=== PATIENT | male | born 1955 | race Hispanic/Latino ===

== ENCOUNTER 2019-02-04 21:07 | Observation (INO) | payer MEDICAID ==
--- OUTSIDE RECORDS SUMMARY | 2019-02-04 21:10 | XMS REPORT | Clinical Summary ---
:1955 Author Organization [facility] Address [address] [place] [address] Care Team Providers Name Role Phone Unavailable Primary Care Provider Unavailable Allergies No Known Allergies Medications Medication Sig Dispensed Refills Start Date End Date Status metFORMIN Take 1,000 mg by 0 Active (GLUCOPHAGE) 1000 mouth 2 (two) times MG tablet daily with breakfast and dinner. aspirin 81 MG Take 1 tablet (81 mg 90 tablet 3 06/27/2017 chewable tablet total) by mouth 8 daily. atorvastatin Take 1 tablet (80 mg 90 tablet 3 06/27/2017 (LIPITOR) 80 MG total) by mouth 8 tablet daily. furosemide (LASIX) Take 1 tablet (20 mg 180 tablet 3 06/26/2017 20 MG tablet total) by mouth 2 8 (two) times daily. metoprolol Take 1 tablet (50 mg 90 tablet 3 06/27/2017 (TOPROL-XL) 50 MG total) by mouth 8 24 hr tablet daily. potassium chloride Take 1 tablet (20 90 tablet 3 06/27/2017 SA mEq total) by mouth 8 (K-DUR,KLOR-CON) daily. 20 MEQ tablet insulin detemir Inject 18 Units 32.4 mL 3 06/26/2017 (LEVEMIR) 100 subcutaneously 2 8 unit/mL injection (two) times daily. 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 Overview: On 06/11/17 Acute postoperative pain 06/13/2017 Encephalopathy 06/13/2017 Hypertensive urgency 06/13/2017 NSTEMI (non-ST elevated myocardial infarction) 06/09/2017 Type 2 diabetes mellitus with complication 06/09/2017 Other hyperlipidemia 06/09/2017 Immunizations Name Dates Previously Given Next Due Influenza Three-TIV PF 5+ YR 06/25/2017 Social History Tobacco Use Types Packs/Day Years Used Date Former Smoker Cigarettes 0.5 41 06/09/1976 - 05/26/2017 Smokeless Tobacco: Never Used Alcohol Use Drinks/Week oz/Week Comments No Sex Assigned at Date Recorded Not on file Job Start Date Occupation Industry Not on file Not on file Not on file Travel History Travel Start Travel End No recent travel history available. Last Filed Vital Signs Not on file Plan of Treatment Not on file Implants Implanted Type Area Body Wirer Device Shelf Model / Identifier Expiration Serial / Date Lot Sut Surg Stl 7 18g 18in Mls Mp M655g - Sn/A Force/Ar N/A: J &J:ETHICON 01/03/2022 [id number] / Implanted: Qty: 4 on 06/11/2017 by Daniela Atkins MD throscopy Sternum N/A / [id number] Sut Surg Stl 7 18g 18in Mls Mp M655g - Sn/A Force/Ar N/A: J &J:ETHICON 01/03/2022 [id number] / Implanted: Qty: 2 on 06/11/2017 by Daniela Atkins MD throscopy Sternum N/A / [id number] Procedures Procedure Name Priority Date/Time Associated Diagnosis Comments TRANSFUSE LEUKO-REDUCED STAT 09/12/2018 5:25 PM CARD PUNCHER RED BLOOD CELLS after 02/03/2018 Results Transfuse Leuko-Red RBC (09/12/2018 5:25 PM CARD PUNCHER)after 02/03/2018 Insurance Payer Benefit Plan / Group Subscriber ID Type Phone Address [place] xxxxxxxxx Advance Directives For more information, please contact:[facility] [employer] [phone] Code Status Date Activated Date Inactivated Comments Full Code 06/11/2017 4:43 PM 06/26/2017 10:49 PM This code status was determined by: Patient Full Code 06/09/2017 8:00 AM 06/11/2017 4:43 PM This code status was determined by: Patient
--- OUTSIDE RECORDS SUMMARY | 2019-02-04 21:10 | XMS REPORT | Summary of Care ---
:1955 Author Name Onelia Ram R.N. Address [place] [facility] Unavailable , Care Team Providers Name Role Phone ANGELIQUE Bustos, SOURAV Unavailable Unavailable Matt Mark M.D. Unavailable Unavailable Unavailable Unavailable Unavailable Functional Status Name Dates Details Functional status health issues are not documented Status: Name Dates Details Cognitive status health issues are not documented Status: Problems Name Dates Details Diabetes Mellitus Poorly Controlled (250.02) Status: Active Lumbar Spondylosis (L3 - L4) (721.3) Status: Active Drowsiness (780.09, R40.0) Status: Active Lower back pain (724.2, M54.5) Status: Active Chronic obstructive pulmonary disease (496, J44.9) Status: Active Abnormal glucose (790.29, R73.09) Status: Active Hyperlipidemia (272.4, E78.5) Status: Active Fatigue (780.79, R53.83) Status: Active Arthralgia of multiple sites (719.49, M25.50) Status: Active Lumbar spondylosis (721.3, M47.816) Status: Active S/P cholecystectomy (V45.79, Z90.49) Status: Active Medications Name Dates Details Combivent 18-103 MCG/ACT AERO INHALE 2 PUFFS FOUR TIMES DAILY DIRECTED. Quantity: 1 Refills: 5 Matt Mark M.D. Start : 29-Dec-2010 Active 14.7 GM Inhaler Hydrocodone-Acetaminophen 5-500 MG TABS TAKE 1-2 TABLETs TWICE DAILY NEEDED FOR PAIN Quantity: 60 Refills: 0 Matt Mark M.D. Start : 29-Dec-2010 Active Allergies and Adverse Reactions Name Dates Details No Known Drug Allergies (Allergy) Status: Active Procedures Procedure Dates Details Procedures not documented Immunization Name Dates Details Immunizations not documented Family History Name Dates Details No pertinent family history Status: Active Social History Name Dates Details - Status: Name Dates Details Never smoker Vital Signs Date Test Result Details [id number] BP Systolic 126 mm[Hg] Status: BP Diastolic 70 mm[Hg] Status: Height 69 in Status: Weight 202.5 lb Status: Body Mass Index Calculated 29.9 kg/m2 Status: Body Surface Area Calculated 2.08 m2 Status: Temperature 97.8 f Status: Heart Rate 76 /min Status: Results Date Description Value Details Results not documented Plan of Care Name Dates Details Planned Observations Planned Goals not documented Interventions Provided InstructionsPatient Specific Education Given; Done: 04 Oct 2017 Instructions Name Dates Details Instructions not documented Encounters Appointment; GENERAL, SERVICE On: 04-Oct-2017 14:15 Encounter Diagnosis: Problem not documented
--- OUTSIDE RECORDS SUMMARY | 2019-02-04 21:16 | XMS REPORT ---
:1955 [facility] [address] [place] [address] [address]. [address] [place] [address] Care Team Providers Name Role Phone PARAG WEEMS Unavailable Unavailable AYESHA PERSAUD Unavailable Unavailable Problems This patient has no known problems. Allergies, Adverse Reactions, Alerts This patient has no known allergies or adverse reactions. Medications This patient has no known medications. Results Test Description Test Time Test Comments Text Results Atomic Results Result Comments MAGNESIUM 2017-07-19 14:26:00 Test Item Value Reference Range Comments MAGNESIUM (BEAKER) (test xiag=552) 1.9 mg/dL 1.6-2.6 BASIC METABOLIC [id number] 14:26:00 Test Item Value Reference Range Comments SODIUM (BEAKER) (test 137 meq/L 136-145 milo=841) POTASSIUM (BEAKER) (test 3.8 meq/L 3.5-5.1 lqgj=569) CHLORIDE (BEAKER) (test 104 meq/L 98-107 qugy=880) CO2 (BEAKER) (test 24 meq/L 22-29 nxzp=526) BLOOD UREA NITROGEN 7 mg/dL 7-21 (BEAKER) (test ovhn=602) CREATININE (BEAKER) (test 0.79 mg/dL 0.57-1.25 fsyq=085) GLUCOSE RANDOM (BEAKER) 144 mg/dL 70-105 (test eazc=618) CALCIUM (BEAKER) (test 9.2 mg/dL 8.4-10.2 ceky=888) EGFR (BEAKER) (test 100 mL/min/1.73 sq m ESTIMATED GFR IS NOT eqfv=3808) ACCURATE CREATININE CLEARANCE IN PREDICTING GLOMERULAR FILTRATION RATE. ESTIMATED GFR IS NOT APPLICABLE FOR DIALYSIS PATIENTS. B-TYPE NATRIURETIC FACTOR (BNP)2017-07-19 14:26:00 Test Item Value Reference Range Comments B-TYPE NATRIURETIC PEPTIDE (BEAKER) (test 165 pg/mL 0-100 oifl=950) POCT-GLUCOSE [id number] 17:17:00 Test Item Value Reference Range Comments POC-GLUCOSE METER (BEAKER) 224 mg/dL 70-110 TESTED AT [place] [id number] [facility] (test inpy=3747) [facility] [address] POCT-GLUCOSE [id number] 11:44:00 Test Item Value Reference Range Comments POC-GLUCOSE METER (BEAKER) 153 mg/dL 70-110 TESTED AT [address] (test lyzp=6628) [place] [id number] POCT-GLUCOSE [id number] 07:34:00 Test Item Value Reference Range Comments POC-GLUCOSE METER (BEAKER) 142 mg/dL 70-110 TESTED AT [address] (test qegu=8144) [place] [id number] BASIC METABOLIC [id number] 06:07:00 Test Item Value Reference Range Comments SODIUM (BEAKER) (test 132 meq/L 136-145 szfc=021) POTASSIUM (BEAKER) (test 4.9 meq/L 3.5-5.1 Specimen slightly niin=607) hemolyzed CHLORIDE (BEAKER) (test 105 meq/L 98-107 kdvm=571) CO2 (BEAKER) (test 21 meq/L 22-29 hwax=178) BLOOD UREA NITROGEN 12 mg/dL 7-21 (BEAKER) (test rxer=015) CREATININE (BEAKER) (test 0.66 mg/dL 0.57-1.25 Specimen slightly pnsm=602) hemolyzed GLUCOSE RANDOM (BEAKER) 104 mg/dL 70-105 (test wuoi=725) CALCIUM (BEAKER) (test 8.8 mg/dL 8.4-10.2 xyef=022) EGFR (BEAKER) (test 123 mL/min/1.73 sq m ESTIMATED GFR IS NOT znra=4907) ACCURATE CREATININE CLEARANCE IN PREDICTING GLOMERULAR FILTRATION RATE. ESTIMATED GFR IS NOT APPLICABLE FOR DIALYSIS PATIENTS. HEPATIC FUNCTION [id number] 06:07:00 Test Item Value Reference Range Comments TOTAL PROTEIN (BEAKER) (test 7.3 gm/dL 6.0-8.3 Specimen slightly hemolyzed ptcc=177) ALBUMIN (BEAKER) (test 3.0 g/dL 3.5-5.0 Specimen slightly hemolyzed rdwh=9802) BILIRUBIN TOTAL (BEAKER) (test 0.6 mg/dL 0.2-1.2 Specimen slightly hemolyzed ekhe=706) BILIRUBIN DIRECT (BEAKER) (test 0.3 mg/dL 0.1-0.5 Specimen slightly hemolyzed mwiv=480) ALKALINE PHOSPHATASE (BEAKER) 95 U/L 40-150 (test tnnt=799) AST (SGOT) (BEAKER) (test 23 U/L 5-34 Specimen slightly hemolyzed pjrg=163) ALT (SGPT) (BEAKER) (test 44 U/L 6-55 Specimen slightly hemolyzed bukc=203) CBC (HEMOGRAM ONLY)2017-06-26 05:46:00 Test Item Value Reference Range Comments WHITE BLOOD CELL COUNT (BEAKER) (test poay=900) 7.8 K/ L 3.5-10.5 RED BLOOD CELL COUNT (BEAKER) (test niwx=556) 3.77 M/ L 4.63-6.08 HEMOGLOBIN (BEAKER) (test euaq=048) 10.7 GM/DL 13.7-17.5 HEMATOCRIT (BEAKER) (test qwmy=386) 34.0 % 40.1-51.0 MEAN CORPUSCULAR VOLUME (BEAKER) (test nruo=615) 90.2 fL 79.0-92.2 MEAN CORPUSCULAR HEMOGLOBIN (BEAKER) (test 28.4 pg 25.7-32.2 zbcw=272) MEAN CORPUSCULAR HEMOGLOBIN CONC (BEAKER) (test 31.5 GM/DL 32.3-36.5 vqql=241) RED CELL DISTRIBUTION WIDTH (BEAKER) (test 14.0 % 11.6-14.4 nlck=563) PLATELET COUNT (BEAKER) (test eeqv=077) 352 K/CU MM 150-450 MEAN PLATELET VOLUME (BEAKER) (test xwca=254) 10.4 fL 9.4-12.4 NUCLEATED RED BLOOD CELLS (BEAKER) (test 0 /100 WBC 0-0 izee=213) POCT-GLUCOSE [id number] 20:42:00 Test Item Value Reference Range Comments POC-GLUCOSE METER (BEAKER) 219 mg/dL 70-110 TESTED AT [facility] [address] [facility] (test qnkq=3899) [facility] [address] POCT-GLUCOSE [id number] 15:44:00 Test Item Value Reference Range Comments POC-GLUCOSE METER (BEAKER) 283 mg/dL 70-110 TESTED AT [address] (test qkqk=7233) [facility] [address] POCT-GLUCOSE [id number] 12:41:00 Test Item Value Reference Range Comments POC-GLUCOSE METER (BEAKER) 258 mg/dL 70-110 TESTED AT [address] (test xfvu=4821) [place] [id number] POCT-GLUCOSE [id number] 07:50:00 Test Item Value Reference Range Comments POC-GLUCOSE METER (BEAKER) 145 mg/dL 70-110 TESTED AT [address] (test ouvk=0706) [place] [address] BLOOD [id number] 05:01:00 Test Item Value Reference Range Comments CULTURE (BEAKER) (test jsqd=3417) No growth in 5 days POCT-GLUCOSE [id number] 21:08:00 Test Item Value Reference Range Comments POC-GLUCOSE METER (BEAKER) 212 mg/dL 70-110 TESTED AT [address] (test eafy=5804) [facility] [address] POCT-GLUCOSE [id number] 16:15:00 Test Item Value Reference Range Comments POC-GLUCOSE METER (BEAKER) 299 mg/dL 70-110 TESTED AT [address] (test nzce=4173) [facility] [address] POCT-GLUCOSE [id number] 12:00:00 Test Item Value Reference Range Comments POC-GLUCOSE METER (BEAKER) 202 mg/dL 70-110 TESTED AT [address] (test npgv=6506) [facility] [address] POCT-GLUCOSE [id number] 08:11:00 Test Item Value Reference Range Comments POC-GLUCOSE METER (BEAKER) 183 mg/dL 70-110 TESTED AT [address] (test fmfw=3861) [place] [id number] POCT-GLUCOSE [id number] 20:26:00 Test Item Value Reference Range Comments POC-GLUCOSE METER (BEAKER) 282 mg/dL 70-110 TESTED AT [address] (test dupa=4268) [place] [id number] POCT-GLUCOSE [id number] 17:14:00 Test Item Value Reference Range Comments POC-GLUCOSE METER (BEAKER) 235 mg/dL 70-110 TESTED AT [address] (test gshw=6583) [place] [address] POCT-GLUCOSE [id number] 11:59:00 Test Item Value Reference Range Comments POC-GLUCOSE METER (BEAKER) 198 mg/dL 70-110 TESTED AT [address] (test djxh=9528) [place] [address] BLOOD [id number] 10:00:00 Test Item Value Reference Range Comments CULTURE (BEAKER) (test azgh=3782) No growth in 5 days BLOOD [id number] 10:00:00 Test Item Value Reference Range Comments CULTURE (BEAKER) (test ftzj=3926) No growth in 5 days POCT-GLUCOSE [id number] 08:00:00 Test Item Value Reference Range Comments POC-GLUCOSE METER (BEAKER) 113 mg/dL 70-110 TESTED AT [address] (test qkaj=5404) [place] [address] CBC W/PLT COUNT & AUTO [id number] 06:23:00 Test Item Value Reference Range Comments WHITE BLOOD CELL COUNT (BEAKER) (test gkhw=188) 8.9 K/ L 3.5-10.5 RED BLOOD CELL COUNT (BEAKER) (test enio=169) 3.50 M/ L 4.63-6.08 HEMOGLOBIN (BEAKER) (test ighu=546) 10.1 GM/DL 13.7-17.5 HEMATOCRIT (BEAKER) (test xogg=197) 31.1 % 40.1-51.0 MEAN CORPUSCULAR VOLUME (BEAKER) (test grki=459) 88.9 fL 79.0-92.2 MEAN CORPUSCULAR HEMOGLOBIN (BEAKER) (test 28.9 pg 25.7-32.2 ulqn=548) MEAN CORPUSCULAR HEMOGLOBIN CONC (BEAKER) (test 32.5 GM/DL 32.3-36.5 rvfx=467) RED CELL DISTRIBUTION WIDTH (BEAKER) (test 13.7 % 11.6-14.4 zafo=152) PLATELET COUNT (BEAKER) (test lybx=686) 433 K/CU MM 150-450 MEAN PLATELET VOLUME (BEAKER) (test fokb=562) 9.4 fL 9.4-12.4 NUCLEATED RED BLOOD CELLS (BEAKER) (test 0 /100 WBC 0-0 qmik=554) NEUTROPHILS RELATIVE PERCENT (BEAKER) (test 54 % ulzv=142) LYMPHOCYTES RELATIVE PERCENT (BEAKER) (test 34 % fjqo=927) MONOCYTES RELATIVE PERCENT (BEAKER) (test 10 % paue=564) EOSINOPHILS RELATIVE PERCENT (BEAKER) (test 2 % doau=323) BASOPHILS RELATIVE PERCENT (BEAKER) (test 0 % orar=321) NEUTROPHILS ABSOLUTE COUNT (BEAKER) (test 4.78 K/ L 1.78-5.38 fsyc=134) LYMPHOCYTES ABSOLUTE COUNT (BEAKER) (test 2.99 K/ L 1.32-3.57 xaou=242) MONOCYTES ABSOLUTE COUNT (BEAKER) (test 0.87 K/ L 0.30-0.82 xsfx=018) EOSINOPHILS ABSOLUTE COUNT (BEAKER) (test 0.18 K/ L 0.04-0.54 ohkm=443) BASOPHILS ABSOLUTE COUNT (BEAKER) (test 0.04 K/ L 0.01-0.08 uqbd=670) IMMATURE GRANULOCYTES-RELATIVE PERCENT (BEAKER) 0 % 0-1 (test pouk=0066) BASIC METABOLIC [id number] 06:02:00 Test Item Value Reference Range Comments SODIUM (BEAKER) (test 133 meq/L 136-145 qlgo=294) POTASSIUM (BEAKER) (test 4.1 meq/L 3.5-5.1 wmex=191) CHLORIDE (BEAKER) (test 101 meq/L 98-107 jnmx=141) CO2 (BEAKER) (test 27 meq/L 22-29 gnir=401) BLOOD UREA NITROGEN 11 mg/dL 7-21 (BEAKER) (test sliz=408) CREATININE (BEAKER) (test 0.71 mg/dL 0.57-1.25 gyob=966) GLUCOSE RANDOM (BEAKER) 115 mg/dL 70-105 (test uryb=494) CALCIUM (BEAKER) (test 8.6 mg/dL 8.4-10.2 ozkw=042) EGFR (BEAKER) (test 113 mL/min/1.73 sq m ESTIMATED GFR IS NOT dafg=5662) ACCURATE CREATININE CLEARANCE IN PREDICTING GLOMERULAR FILTRATION RATE. ESTIMATED GFR IS NOT APPLICABLE FOR DIALYSIS PATIENTS. POCT-GLUCOSE [id number] 20:46:00 Test Item Value Reference Range Comments POC-GLUCOSE METER (BEAKER) 244 mg/dL 70-110 TESTED AT [facility] [address] [facility] (test riru=8298) [facility] [address] POCT-GLUCOSE [id number] 17:04:00 Test Item Value Reference Range Comments POC-GLUCOSE METER (BEAKER) 249 mg/dL 70-110 TESTED AT [facility] [address] [facility] (test mhvq=4981) [facility] [address] POCT-GLUCOSE [id number] 11:07:00 Test Item Value Reference Range Comments POC-GLUCOSE METER (BEAKER) 268 mg/dL 70-110 TESTED AT [address] (test agxl=1269) [place] [id number] U/S, ABDOMINAL, [id number] 08:52:00Abdomen limited area? Add comment if clarification is needed.->Right upper quadrantReason for exam:->abn CTFINAL REPORT Ultrasound of the Right Upper Quadrant of the Abdomen Clinical History: Abnormal CT Comparison: CT of the abdomen and pelvis from 06/21/2017 Discussion: Sonographic evaluation of the right upper quadrant of the abdomen is performed. Liver: Measures 17 cm in length at the right midclavicular line. Diffusely increased echogenicity. No lesion is identified by ultrasound. Main portal vein diameter measures 1.3 cm. Biliary tree: Common duct measures 6 mm. Nointrahepatic biliary dilatation. Gallbladder: Moderate gallbladder wall thickening and gallbladder hydrops. There is trace pericholecystic fluid. Sludge is seen within the gallbladder lumen.. Pancreas: Not well seen. Ascites: None seen. Right kidney: Measures 10.5 x 5.7 x 6.1 cm. Normal cortical echogenicity. No mass. No shadowing calculus. No hydronephrosis. IVC/Aorta: Segments partially seen. Impression: Moderate gallbladder wall thickening and trace pericholecystic fluid with gallbladder hydrops. Findings may represent acute cholecystitis in the appropriate clinical setting. Diffusely increased echogenicity of the hepatic parenchyma, a nonspecific finding which may be seen in steatosis or hepatitis. Signed: Dewayne Saneport Verified Date/Time: 06/22/2017 08:52:03 Reading Location: [facility] [id number] Ultrasound Reading Room POCT-GLUCOSE [id number] 07:55: 00 Test Item Value Reference Range Comments POC-GLUCOSE METER (BEAKER) 153 mg/dL 70-110 TESTED AT [address] (test kizp=1268) [facility] [address] POCT-GLUCOSE [id number] 22:38:00 Test Item Value Reference Range Comments POC-GLUCOSE METER (BEAKER) 248 mg/dL 70-110 TESTED AT [address] (test euln=9858) [facility] [address] POCT-GLUCOSE [id number] 17:10:00 Test Item Value Reference Range Comments POC-GLUCOSE METER (BEAKER) 177 mg/dL 70-110 TESTED AT [address] (test sohb=1844) [facility] [address] HEPATIC FUNCTION [id number] 13:00:00 Test Item Value Reference Range Comments TOTAL PROTEIN (BEAKER) (test bege=191) 6.6 gm/dL 6.0-8.3 ALBUMIN (BEAKER) (test ttgw=5494) 2.8 g/dL 3.5-5.0 BILIRUBIN TOTAL (BEAKER) (test wigu=162) 0.6 mg/dL 0.2-1.2 BILIRUBIN DIRECT (BEAKER) (test udel=225) 0.3 mg/dL 0.1-0.5 ALKALINE PHOSPHATASE (BEAKER) (test kqub=282) 98 U/L 40-150 AST (SGOT) (BEAKER) (test vnly=753) 34 U/L 5-34 ALT (SGPT) (BEAKER) (test xxgz=916) 95 U/L 6-55 POCT-GLUCOSE [id number] 12:07:00 Test Item Value Reference Range Comments POC-GLUCOSE METER (BEAKER) 231 mg/dL 70-110 TESTED AT [address] (test iqxk=0300) [facility] [address] POCT-GLUCOSE [id number] 08:16:00 Test Item Value Reference Range Comments POC-GLUCOSE METER (BEAKER) 193 mg/dL 70-110 TESTED AT [address] (test tqgd=1478) [facility] [address] PROTHROMBIN [id number] 07:50:00 Test Item Value Reference Range Comments PROTIME (BEAKER) (test pyvm=568) 15.9 seconds 11.7-14.7 INR (BEAKER) (test ddee=162) 1.3 <=5.9 RECOMMENDED COUMADIN/WARFARIN INR THERAPY RANGESSTANDARD DOSE: 2.0 - 3.0 Includes: PROPHYLAXIS forvenous thrombosis, systemic embolization; TREATMENT for venous thrombosis and/or pulmonary embolus.HIGH RISK: Target INR is 2.5-3.5 for patients with mechanical heart valves.BASIC METABOLIC [id number] 05:50: 00 Test Item Value Reference Range Comments SODIUM (BEAKER) (test 130 meq/L 136-145 qzdp=767) POTASSIUM (BEAKER) (test 4.2 meq/L 3.5-5.1 immy=119) CHLORIDE (BEAKER) (test 100 meq/L 98-107 hrmd=979) CO2 (BEAKER) (test 21 meq/L 22-29 rcsn=039) BLOOD UREA NITROGEN 13 mg/dL 7-21 (BEAKER) (test txpk=707) CREATININE (BEAKER) (test 0.73 mg/dL 0.57-1.25 wrze=074) GLUCOSE RANDOM (BEAKER) 173 mg/dL 70-105 (test apra=523) CALCIUM (BEAKER) (test 8.2 mg/dL 8.4-10.2 lbpq=397) EGFR (BEAKER) (test 110 mL/min/1.73 sq m ESTIMATED GFR IS NOT ojue=7740) ACCURATE CREATININE CLEARANCE IN PREDICTING GLOMERULAR FILTRATION RATE. ESTIMATED GFR IS NOT APPLICABLE FOR DIALYSIS PATIENTS. CT, [id number] 05:30:00FINAL REPORT CT, ABDOMEN \\T \\ PELVIS, WITH IV CONTRAST, CT, CHEST, WITH CONTRAST INDICATION: "evaluate for abscess or hematoma" COMPARISON: None TECHNIQUE: Post contrast axially oriented images were obtained from the thoracic inlet through the pelvis. Delayed images through the abdomen and pelvis were also obtained. Coronal and sagittal reformats were provided. DOSE REDUCTION: Dose modulation, iterative reconstruction, and/or weight-based adjustment of the mA/kV was utilized to reduce the radiation dose to as low as reasonably achievable. FINDINGS: CHEST: Great vessels are normal in course and caliber.No cardiomegaly.No pathologic adenopathy in the chest per CT size criteria. Small, left greater than right, pleural effusions with adjacent airspace disease. No active pulmonary edema. ABDOMEN/PELVIS:Gallbladder wall thickening and pericholecystic inflammatory change. Small focal areas of discontinuity of the mucosal surface of the gallbladder wall with rounded hypodensities in between the mucosal and serosal surface. There is some hyperemia of the adjacent liver parenchyma. Findings are concerning for acute gangrenous cholecystitis. There is also a hyperdense 4 mm stone near the gallbladder neck. No acute abnormality of the hollow abdominal viscera.Fluid and air-filled duodenal diverticulum near the pancreatic head.Normal appendix. No focal lytic or destructive bony process. IMPRESSION: Findings concerning for acute gangrenous cholecystitis. Findings were communicated to Dr. Matthews at the time of this dictation. Signed: Duane Tom MDReport Verified Date/Time: 06/21/2017 05:30:57 Reading Location: [address] Consult Reading Room CT, CHEST, WITH [id number] 05:30:00FINAL REPORT CT, ABDOMEN \\T\\ PELVIS, WITH IV CONTRAST, CT, CHEST, WITH CONTRAST INDICATION: "evaluate for abscess or hematoma" COMPARISON: None TECHNIQUE: Post contrast axially oriented images were obtained from the thoracic inlet through the pelvis. Delayed images through the abdomen and pelvis were also obtained. Coronal and sagittal reformats were provided. DOSE REDUCTION: Dose modulation, iterative reconstruction, and/or weight-based adjustment of the mA/kV was utilized to reduce the radiation dose to as low as reasonably achievable. FINDINGS: CHEST:Great vessels are normal in course and caliber.No cardiomegaly.No pathologic adenopathy in the chest per CT size criteria. Small, left greater than right, pleural effusions with adjacent airspace disease. No active pulmonary edema. ABDOMEN/PELVIS:Gallbladder wall thickening and pericholecystic inflammatory change. Small focal areas of discontinuity of the mucosal surface of the gallbladder wall with rounded hypodensities in between the mucosal and serosal surface. There is some hyperemia of the adjacent liver parenchyma. Findings are concerning for acute gangrenous cholecystitis. There is also a hyperdense 4 mm stone near the gallbladder neck. No acute abnormality of the hollow abdominal viscera.Fluid and air-filled duodenal diverticulum near the pancreatic head.Normal appendix. No focal lytic or destructive bony process. IMPRESSION:Findings concerning for acute gangrenous cholecystitis. Findings were communicated to Dr. Matthews at the time of this dictation. Signed: Duane Tom MDReport Verified Date/Time : 06/21/2017 05:30:57 Reading Location: [facility] [id number] Ortho Consult Reading Room CBC W/ PLT COUNT & AUTO [id number] 05:18:00 Test Item Value Reference Range Comments WHITE BLOOD CELL COUNT (BEAKER) (test ewqr=266) 8.8 K/ L 3.5-10.5 RED BLOOD CELL COUNT (BEAKER) (test rsje=465) 3.31 M/ L 4.63-6.08 HEMOGLOBIN (BEAKER) (test zrwm=578) 9.5 GM/DL 13.7-17.5 HEMATOCRIT (BEAKER) (test knah=897) 29.7 % 40.1-51.0 MEAN CORPUSCULAR VOLUME (BEAKER) (test goza=658) 89.7 fL 79.0-92.2 MEAN CORPUSCULAR HEMOGLOBIN (BEAKER) (test 28.7 pg 25.7-32.2 deiy=879) MEAN CORPUSCULAR HEMOGLOBIN CONC (BEAKER) (test 32.0 GM/DL 32.3-36.5 pvxw=397) RED CELL DISTRIBUTION WIDTH (BEAKER) (test 13.5 % 11.6-14.4 ungf=098) PLATELET COUNT (BEAKER) (test snry=898) 249 K/CU MM 150-450 MEAN PLATELET VOLUME (BEAKER) (test blch=174) 11.0 fL 9.4-12.4 NUCLEATED RED BLOOD CELLS (BEAKER) (test 0 /100 WBC 0-0 ibej=583) NEUTROPHILS RELATIVE PERCENT (BEAKER) (test 67 % osox=442) LYMPHOCYTES RELATIVE PERCENT (BEAKER) (test 20 % zhkp=178) MONOCYTES RELATIVE PERCENT (BEAKER) (test 11 % fcnw=489) EOSINOPHILS RELATIVE PERCENT (BEAKER) (test 2 % fqmz=690) BASOPHILS RELATIVE PERCENT (BEAKER) (test 1 % zvzx=760) NEUTROPHILS ABSOLUTE COUNT (BEAKER) (test 5.84 K/ L 1.78-5.38 roxh=930) LYMPHOCYTES ABSOLUTE COUNT (BEAKER) (test 1.74 K/ L 1.32-3.57 ctpb=580) MONOCYTES ABSOLUTE COUNT (BEAKER) (test 0.99 K/ L 0.30-0.82 qnbe=747) EOSINOPHILS ABSOLUTE COUNT (BEAKER) (test 0.14 K/ L 0.04-0.54 zlpl=374) BASOPHILS ABSOLUTE COUNT (BEAKER) (test 0.04 K/ L 0.01-0.08 ebfn=794) IMMATURE GRANULOCYTES-RELATIVE PERCENT (BEAKER) 0 % 0-1 (test yurg=9092) POCT-GLUCOSE [id number] 21:14:00 Test Item Value Reference Range Comments POC-GLUCOSE METER (BEAKER) 195 mg/dL 70-110 TESTED AT [address] (test cssx=6599) [place] [address] POCT-GLUCOSE [id number] 16:02:00 Test Item Value Reference Range Comments POC-GLUCOSE METER (BEAKER) 181 mg/dL 70-110 TESTED AT [address] (test qqle=3166) [place] [id number] POCT-GLUCOSE [id number] 11:56:00 Test Item Value Reference Range Comments POC-GLUCOSE METER (BEAKER) 174 mg/dL 70-110 TESTED AT [address] (test csga=9692) [place] [id number] POCT-GLUCOSE [id number] 07:29:00 Test Item Value Reference Range Comments POC-GLUCOSE METER (BEAKER) 133 mg/dL 70-110 TESTED AT [address] (test jetv=4199) [place] [id number] CBC W/PLT COUNT & AUTO [id number] 05:03:00 Test Item Value Reference Range Comments WHITE BLOOD CELL COUNT (BEAKER) (test gsxs=946) 12.1 K/ L 3.5-10.5 RED BLOOD CELL COUNT (BEAKER) (test oget=323) 3.18 M/ L 4.63-6.08 HEMOGLOBIN (BEAKER) (test nplr=729) 9.3 GM/DL 13.7-17.5 HEMATOCRIT (BEAKER) (test apxm=346) 28.5 % 40.1-51.0 MEAN CORPUSCULAR VOLUME (BEAKER) (test rxji=276) 89.6 fL 79.0-92.2 MEAN CORPUSCULAR HEMOGLOBIN (BEAKER) (test 29.2 pg 25.7-32.2 vhcb=399) MEAN CORPUSCULAR HEMOGLOBIN CONC (BEAKER) (test 32.6 GM/DL 32.3-36.5 cimz=214) RED CELL DISTRIBUTION WIDTH (BEAKER) (test 13.2 % 11.6-14.4 mwcb=882) PLATELET COUNT (BEAKER) (test zlic=447) 318 K/CU MM 150-450 MEAN PLATELET VOLUME (BEAKER) (test qbpq=754) 9.4 fL 9.4-12.4 NUCLEATED RED BLOOD CELLS (BEAKER) (test 0 /100 WBC 0-0 ttvj=740) NEUTROPHILS RELATIVE PERCENT (BEAKER) (test 71 % xyrw=227) LYMPHOCYTES RELATIVE PERCENT (BEAKER) (test 17 % eldm=667) MONOCYTES RELATIVE PERCENT (BEAKER) (test 10 % tbyh=673) EOSINOPHILS RELATIVE PERCENT (BEAKER) (test 1 % bvpe=402) BASOPHILS RELATIVE PERCENT (BEAKER) (test 0 % qwhj=244) NEUTROPHILS ABSOLUTE COUNT (BEAKER) (test 8.58 K/ L 1.78-5.38 vsgm=825) LYMPHOCYTES ABSOLUTE COUNT (BEAKER) (test 2.06 K/ L 1.32-3.57 cblz=910) MONOCYTES ABSOLUTE COUNT (BEAKER) (test 1.22 K/ L 0.30-0.82 gavw=601) EOSINOPHILS ABSOLUTE COUNT (BEAKER) (test 0.10 K/ L 0.04-0.54 gtbm=351) BASOPHILS ABSOLUTE COUNT (BEAKER) (test 0.03 K/ L 0.01-0.08 zmkn=188) IMMATURE GRANULOCYTES-RELATIVE PERCENT (BEAKER) 1 % 0-1 (test badn=3553) POCT-GLUCOSE [id number] 21:45:00 Test Item Value Reference Range Comments POC-GLUCOSE METER (BEAKER) 202 mg/dL 70-110 TESTED AT [facility] [address] [facility] (test wtvj=6878) [facility] [id number] POCT-GLUCOSE [id number] 16:17:00 Test Item Value Reference Range Comments POC-GLUCOSE METER (BEAKER) 241 mg/dL 70-110 TESTED AT [facility] [address] [facility] (test qwqb=5393) [facility] [address] POCT-GLUCOSE [id number] 11:34:00 Test Item Value Reference Range Comments POC-GLUCOSE METER (BEAKER) 192 mg/dL 70-110 TESTED AT [place] [id number] [facility] (test embp=8599) [facility] [address] POCT-GLUCOSE [id number] 08:25:00 Test Item Value Reference Range Comments POC-GLUCOSE METER (BEAKER) 233 mg/dL 70-110 TESTED AT [address] (test lxvv=8555) [facility] [id number] BASIC METABOLIC [id number] 05:46:00 Test Item Value Reference Range Comments SODIUM (BEAKER) (test 134 meq/L 136-145 nsfz=450) POTASSIUM (BEAKER) (test 3.9 meq/L 3.5-5.1 jnby=537) CHLORIDE (BEAKER) (test 100 meq/L 98-107 piav=617) CO2 (BEAKER) (test 25 meq/L 22-29 gkfd=830) BLOOD UREA NITROGEN 13 mg/dL 7-21 (BEAKER) (test uapt=953) CREATININE (BEAKER) (test 0.76 mg/dL 0.57-1.25 ebhh=282) GLUCOSE RANDOM (BEAKER) 148 mg/dL 70-105 (test pdsc=259) CALCIUM (BEAKER) (test 8.6 mg/dL 8.4-10.2 hhkj=092) EGFR (BEAKER) (test 105 mL/min/1.73 sq m ESTIMATED GFR IS NOT qcub=8803) ACCURATE CREATININE CLEARANCE IN PREDICTING GLOMERULAR FILTRATION RATE. ESTIMATED GFR IS NOT APPLICABLE FOR DIALYSIS PATIENTS. CBC W/PLT COUNT & AUTO [id number] 05:31:00 Test Item Value Reference Range Comments WHITE BLOOD CELL COUNT (BEAKER) (test pyxv=309) 14.5 K/ L 3.5-10.5 RED BLOOD CELL COUNT (BEAKER) (test fsge=901) 3.41 M/ L 4.63-6.08 HEMOGLOBIN (BEAKER) (test nyvj=717) 9.9 GM/DL 13.7-17.5 HEMATOCRIT (BEAKER) (test tbfu=510) 30.6 % 40.1-51.0 MEAN CORPUSCULAR VOLUME (BEAKER) (test ikdx=266) 89.7 fL 79.0-92.2 MEAN CORPUSCULAR HEMOGLOBIN (BEAKER) (test 29.0 pg 25.7-32.2 hjwv=322) MEAN CORPUSCULAR HEMOGLOBIN CONC (BEAKER) (test 32.4 GM/DL 32.3-36.5 fhcv=043) RED CELL DISTRIBUTION WIDTH (BEAKER) (test 13.2 % 11.6-14.4 vroj=068) PLATELET COUNT (BEAKER) (test kxaa=994) 334 K/CU MM 150-450 MEAN PLATELET VOLUME (BEAKER) (test qkqd=935) 9.4 fL 9.4-12.4 NUCLEATED RED BLOOD CELLS (BEAKER) (test 0 /100 WBC 0-0 lcii=727) NEUTROPHILS RELATIVE PERCENT (BEAKER) (test 76 % xdgf=362) LYMPHOCYTES RELATIVE PERCENT (BEAKER) (test 13 % vunm=719) MONOCYTES RELATIVE PERCENT (BEAKER) (test 8 % smkb=335) EOSINOPHILS RELATIVE PERCENT (BEAKER) (test 1 % pvfd=248) BASOPHILS RELATIVE PERCENT (BEAKER) (test 0 % ncfj=813) NEUTROPHILS ABSOLUTE COUNT (BEAKER) (test 11.03 K/ L 1.78-5.38 gmtz=097) LYMPHOCYTES ABSOLUTE COUNT (BEAKER) (test 1.90 K/ L 1.32-3.57 kaed=111) MONOCYTES ABSOLUTE COUNT (BEAKER) (test 1.17 K/ L 0.30-0.82 ijgo=250) EOSINOPHILS ABSOLUTE COUNT (BEAKER) (test 0.13 K/ L 0.04-0.54 cwsm=394) BASOPHILS ABSOLUTE COUNT (BEAKER) (test 0.05 K/ L 0.01-0.08 hcas=403) IMMATURE GRANULOCYTES-RELATIVE PERCENT (BEAKER) 2 % 0-1 (test mbqy=3194) POCT-GLUCOSE [id number] 21:39:00 Test Item Value Reference Range Comments POC-GLUCOSE METER (BEAKER) 289 mg/dL 70-110 TESTED AT [facility] [address] [facility] (test ouag=5044) [facility] [address] POCT-GLUCOSE [id number] 18:00:00 Test Item Value Reference Range Comments POC-GLUCOSE METER (BEAKER) 107 mg/dL 70-110 TESTED AT [facility] [address] [facility] (test rnen=1700) [facility] [address] POCT-GLUCOSE [id number] 13:23:00 Test Item Value Reference Range Comments POC-GLUCOSE METER (BEAKER) 221 mg/dL 70-110 TESTED AT [address] (test nxim=5872) [place] [address] RAD, CHEST, 1 VIEW, NON [id number] 08:39:00Reason for exam:->feverShould this be performed at the bedside?->YesFINAL REPORT Chest one view. Clinical history: fever Comparison: 06/17/2017 Discussion: A frontal chest is provided. Cardiomediastinal contours are unchanged. Stable mild bibasilar opacities. Question a small left effusion. A tiny left apical pneumothorax is unchanged. Signed: Taiwo Brenner Verified Date/Time: 08:39:09 Reading Location: [facility] Radiology Reading Room POCT-GLUCOSE [id number] 08:15:00 Test Item Value Reference Range Comments POC-GLUCOSE METER (BEAKER) 145 mg/dL 70-110 TESTED AT [address] (test rybx=7656) [place] [id number] URINALYSIS W/ [id number] 08:08:00 Test Item Value Reference Range Comments COLOR (BEAKER) (test ddfd=677) Yellow CLARITY (BEAKER) (test eiyt=214) Clear SPECIFIC GRAVITY UA (BEAKER) (test zwmj=707) 1.012 1.001-1.035 PH UA (BEAKER) (test clkb=396) 6.0 5.0-8.0 PROTEIN UA (BEAKER) (test vhon=250) 10 mg/dL Negative GLUCOSE UA (BEAKER) (test gqva=773) Negative Negative KETONES UA (BEAKER) (test tsim=937) Negative Negative BILIRUBIN UA (BEAKER) (test sxrw=953) Negative Negative BLOOD UA (BEAKER) (test rkmz=713) Negative Negative NITRITE UA (BEAKER) (test bwwm=633) Negative Negative LEUKOCYTE ESTERASE UA (BEAKER) (test pqxo=113) Negative Negative UROBILINOGEN UA (BEAKER) (test prdx=744) 3.0 mg/dL 0.2-1.0 RBC UA (BEAKER) (test myms=542) 1 /HPF WBC UA (BEAKER) (test veds=243) 1 /HPF SQUAMOUS EPITHELIAL (BEAKER) (test sjik=309) < /HPF SOURCE(BEAKER) (test bxqe=4996) [id number] 06:49:00 Test Item Value Reference Range Comments MAGNESIUM (BEAKER) (test xbep=553) 1.8 mg/dL 1.6-2.6 Check Serum Magnesium level 2 hours after IV magnesium replacement.BASIC METABOLIC [id number] 06:49:00 Test Item Value Reference Range Comments SODIUM (BEAKER) (test 129 meq/L 136-145 qpmj=364) POTASSIUM (BEAKER) (test 3.9 meq/L 3.5-5.1 woic=436) CHLORIDE (BEAKER) (test 97 meq/L 98-107 vvdt=634) CO2 (BEAKER) (test 25 meq/L 22-29 vila=773) BLOOD UREA NITROGEN 12 mg/dL 7-21 (BEAKER) (test ylju=103) CREATININE (BEAKER) (test 0.74 mg/dL 0.57-1.25 hqze=510) GLUCOSE RANDOM (BEAKER) 140 mg/dL 70-105 (test hgnf=915) CALCIUM (BEAKER) (test 8.2 mg/dL 8.4-10.2 ydtx=171) EGFR (BEAKER) (test 108 mL/min/1.73 sq m ESTIMATED GFR IS NOT pfgi=8060) ACCURATE CREATININE CLEARANCE IN PREDICTING GLOMERULAR FILTRATION RATE. ESTIMATED GFR IS NOT APPLICABLE FOR DIALYSIS PATIENTS. Check Serum Magnesium level 2 hours after IV magnesium replacement.CBC ( HEMOGRAM ONLY)2017-06-18 06:13:00 Test Item Value Reference Range Comments WHITE BLOOD CELL COUNT (BEAKER) (test fxif=468) 15.9 K/ L 3.5-10.5 RED BLOOD CELL COUNT (BEAKER) (test oicn=919) 3.33 M/ L 4.63-6.08 HEMOGLOBIN (BEAKER) (test rpyo=158) 9.8 GM/DL 13.7-17.5 HEMATOCRIT (BEAKER) (test rzhk=624) 29.1 % 40.1-51.0 MEAN CORPUSCULAR VOLUME (BEAKER) (test nmdj=451) 87.4 fL 79.0-92.2 MEAN CORPUSCULAR HEMOGLOBIN (BEAKER) (test 29.4 pg 25.7-32.2 axra=604) MEAN CORPUSCULAR HEMOGLOBIN CONC (BEAKER) (test 33.7 GM/DL 32.3-36.5 amgw=851) RED CELL DISTRIBUTION WIDTH (BEAKER) (test 13.2 % 11.6-14.4 xnct=848) PLATELET COUNT (BEAKER) (test jkxx=652) 301 K/CU MM 150-450 MEAN PLATELET VOLUME (BEAKER) (test vays=897) 9.3 fL 9.4-12.4 NUCLEATED RED BLOOD CELLS (BEAKER) (test 0 /100 WBC 0-0 nqgh=141) POCT-GLUCOSE [id number] 20:54:00 Test Item Value Reference Range Comments POC-GLUCOSE METER (BEAKER) 213 mg/dL 70-110 TESTED AT [address] (test lyuo=0436) [place] [id number] POCT-GLUCOSE [id number] 16:10:00 Test Item Value Reference Range Comments POC-GLUCOSE METER (BEAKER) 162 mg/dL 70-110 TESTED AT [address] (test alhm=1340) [place] [address] POCT-GLUCOSE [id number] 12:18:00 Test Item Value Reference Range Comments POC-GLUCOSE METER (BEAKER) 258 mg/dL 70-110 TESTED AT [address] (test brom=6698) [place] [address] RAD, CHEST, 1 VIEW, NON [id number] 10:34:00Reason for exam:-> pneumothoraxShould this be performed at the bedside?->YesFINAL REPORT INDICATION: pneumothorax COMPARISON: June 16, 2017 TECHNIQUE: Chest radiograph, single view, portable technique. FINDINGS / IMPRESSION: Left chest tube is removed. There is a tiny left apical pneumothorax and a questionable small left base effusion. Evidence of prior coronary bypass surgery. No pulmonary edema, aspiration, or pneumonia demonstrated. Mid sternotomy wires are intact. Signed: Kannan Valadez MDReport Verified Date/Time: 06/17/2017 10:34:37 Reading Location: [address] Transitional Reading Room POCT-GLUCOSE [id number] 07:52:00 Test Item Value Reference Range Comments POC-GLUCOSE METER (BEAKER) 215 mg/dL 70-110 TESTED AT [facility] [address] [facility] (test dsnn=1947) [facility] [address] [id number] 05:25:00 Test Item Value Reference Range Comments MAGNESIUM (BEAKER) (test ffxd=067) 1.6 mg/dL 1.6-2.6 Check Serum Magnesium level 2 hours after IV magnesium replacement.BASIC METABOLIC [id number] 05:25:00 Test Item Value Reference Range Comments SODIUM (BEAKER) (test 128 meq/L 136-145 lbez=970) POTASSIUM (BEAKER) (test 4.0 meq/L 3.5-5.1 rlcr=017) CHLORIDE (BEAKER) (test 98 meq/L 98-107 sfld=596) CO2 (BEAKER) (test 22 meq/L 22-29 uwhe=010) BLOOD UREA NITROGEN 13 mg/dL 7-21 (BEAKER) (test lkat=026) CREATININE (BEAKER) (test 0.69 mg/dL 0.57-1.25 rkny=596) GLUCOSE RANDOM (BEAKER) 246 mg/dL 70-105 (test zgbh=772) CALCIUM (BEAKER) (test 8.0 mg/dL 8.4-10.2 qocy=625) EGFR (BEAKER) (test 117 mL/min/1.73 sq m ESTIMATED GFR IS NOT wcrt=6447) ACCURATE CREATININE CLEARANCE IN PREDICTING GLOMERULAR FILTRATION RATE. ESTIMATED GFR IS NOT APPLICABLE FOR DIALYSIS PATIENTS. Check Serum Magnesium level 2 hours after IV magnesium replacement.CBC ( HEMOGRAM ONLY)2017-06-17 04:43:00 Test Item Value Reference Range Comments WHITE BLOOD CELL COUNT (BEAKER) (test gxnk=690) 14.4 K/ L 3.5-10.5 RED BLOOD CELL COUNT (BEAKER) (test trrx=927) 3.29 M/ L 4.63-6.08 HEMOGLOBIN (BEAKER) (test jtmo=249) 9.8 GM/DL 13.7-17.5 HEMATOCRIT (BEAKER) (test opmd=251) 28.6 % 40.1-51.0 MEAN CORPUSCULAR VOLUME (BEAKER) (test qozp=125) 86.9 fL 79.0-92.2 MEAN CORPUSCULAR HEMOGLOBIN (BEAKER) (test 29.8 pg 25.7-32.2 oljd=038) MEAN CORPUSCULAR HEMOGLOBIN CONC (BEAKER) (test 34.3 GM/DL 32.3-36.5 tnij=263) RED CELL DISTRIBUTION WIDTH (BEAKER) (test 12.7 % 11.6-14.4 qspz=547) PLATELET COUNT (BEAKER) (test qnbh=065) 257 K/CU MM 150-450 MEAN PLATELET VOLUME (BEAKER) (test dggm=315) 9.5 fL 9.4-12.4 NUCLEATED RED BLOOD CELLS (BEAKER) (test 0 /100 WBC 0-0 gfiy=540) POCT-GLUCOSE [id number] 21:26:00 Test Item Value Reference Range Comments POC-GLUCOSE METER (BEAKER) 227 mg/dL 70-110 TESTED AT [address] (test puvb=9522) [place] [id number] POCT-GLUCOSE [id number] 18:15:00 Test Item Value Reference Range Comments POC-GLUCOSE METER (BEAKER) 173 mg/dL 70-110 TESTED AT [address] (test oirc=6835) [place] [address] POCT-GLUCOSE [id number] 12:26:00 Test Item Value Reference Range Comments POC-GLUCOSE METER (BEAKER) 264 mg/dL 70-110 TESTED AT [address] (test rlyo=4742) [place] [address] POCT-GLUCOSE [id number] 10:28:00 Test Item Value Reference Range Comments POC-GLUCOSE METER (BEAKER) 246 mg/dL 70-110 TESTED AT [address] (test qsqx=1674) [place] [address] RAD, CHEST, 1 VIEW, NON [id number] 08:11:00Reason for exam:->pulmonary congestionShould this be performed at the bedside?->YesFINAL REPORT Chest one view AP 06/16/2017 8:10 AM CLINICAL INDICATION: pulmonary congestion COMPARISON: 06/14/2017 IMPRESSION: There is a small volume left apical pneumothorax. Bibasilar opacities suggesting combination of trace pleural fluid and atelectasis. Pneumonia should be excluded clinically. Cardiomediastinal contours are stable. The central pulmonary vasculature is not engorged. Remaining support hardware is unchanged in position. Signed: Alireza Ayala MDReport Verified Date/Time: 06/16/2017 08:11:25 Reading Location: [facility] C013V Neuro Reading Room [id number] 07:25:00 Test Item Value Reference Range Comments MAGNESIUM (BEAKER) (test fvzs=797) 2.0 mg/dL 1.6-2.6 Check Serum Magnesium level 2 hours after IV magnesium replacement.BASIC METABOLIC [id number] 07:25:00 Test Item Value Reference Range Comments SODIUM (BEAKER) (test 135 meq/L 136-145 ekih=768) POTASSIUM (BEAKER) (test 3.7 meq/L 3.5-5.1 holr=489) CHLORIDE (BEAKER) (test 103 meq/L 98-107 zhqf=675) CO2 (BEAKER) (test 26 meq/L 22-29 niod=216) BLOOD UREA NITROGEN 13 mg/dL 7-21 (BEAKER) (test frqa=420) CREATININE (BEAKER) (test 0.73 mg/dL 0.57-1.25 stbj=605) GLUCOSE RANDOM (BEAKER) 202 mg/dL 70-105 (test bxzh=707) CALCIUM (BEAKER) (test 8.0 mg/dL 8.4-10.2 zwlw=690) EGFR (BEAKER) (test 110 mL/min/1.73 sq m ESTIMATED GFR IS NOT fhhb=9054) ACCURATE CREATININE CLEARANCE IN PREDICTING GLOMERULAR FILTRATION RATE. ESTIMATED GFR IS NOT APPLICABLE FOR DIALYSIS PATIENTS. Check Serum Magnesium level 2 hours after IV magnesium replacement.CBC ( HEMOGRAM ONLY)2017-06-16 06:56:00 Test Item Value Reference Range Comments WHITE BLOOD CELL COUNT (BEAKER) (test jaiu=183) 10.9 K/ L 3.5-10.5 RED BLOOD CELL COUNT (BEAKER) (test erua=383) 3.32 M/ L 4.63-6.08 HEMOGLOBIN (BEAKER) (test ljyx=180) 9.8 GM/DL 13.7-17.5 HEMATOCRIT (BEAKER) (test avba=416) 29.5 % 40.1-51.0 MEAN CORPUSCULAR VOLUME (BEAKER) (test wvpp=868) 88.9 fL 79.0-92.2 MEAN CORPUSCULAR HEMOGLOBIN (BEAKER) (test 29.5 pg 25.7-32.2 dmkh=305) MEAN CORPUSCULAR HEMOGLOBIN CONC (BEAKER) (test 33.2 GM/DL 32.3-36.5 yjth=497) RED CELL DISTRIBUTION WIDTH (BEAKER) (test 13.0 % 11.6-14.4 bgbw=803) PLATELET COUNT (BEAKER) (test mksf=759) 208 K/CU MM 150-450 MEAN PLATELET VOLUME (BEAKER) (test ncqe=412) 10.0 fL 9.4-12.4 NUCLEATED RED BLOOD CELLS (BEAKER) (test 0 /100 WBC 0-0 zsgo=111) POCT-GLUCOSE [id number] 18:34:00 Test Item Value Reference Range Comments POC-GLUCOSE METER (BEAKER) 171 mg/dL 70-110 TESTED AT [address] (test uyjt=3371) [place] [address] POCT-GLUCOSE [id number] 18:12:00 Test Item Value Reference Range Comments POC-GLUCOSE METER (BEAKER) 171 mg/dL 70-110 TESTED AT [address] (test jvsz=1232) [place] [address] POCT-GLUCOSE [id number] 11:53:00 Test Item Value Reference Range Comments POC-GLUCOSE METER (BEAKER) 287 mg/dL 70-110 TESTED AT [address] (test qxbw=9007) [place] [address] [id number] 10:15:00 Test Item Value Reference Range Comments POTASSIUM (BEAKER) (test ywjb=399) 3.7 meq/L 3.5-5.1 [id number] 10:15:00 Test Item Value Reference Range Comments MAGNESIUM (BEAKER) (test ylpq=077) 2.3 mg/dL 1.6-2.6 POCT-GLUCOSE [id number] 08:10:00 Test Item Value Reference Range Comments POC-GLUCOSE METER (BEAKER) 240 mg/dL 70-110 TESTED AT [facility] [address] [facility] (test dwlj=2515) [facility] [address] POCT-GLUCOSE [id number] 06:25:00 Test Item Value Reference Range Comments POC-GLUCOSE METER (BEAKER) 225 mg/dL 70-110 TESTED AT [address] (test uvaj=8017) [place] [address] BASIC METABOLIC [id number] 04:16:00 Test Item Value Reference Range Comments SODIUM (BEAKER) (test 134 meq/L 136-145 ybuw=416) POTASSIUM (BEAKER) (test 3.4 meq/L 3.5-5.1 wrmd=677) CHLORIDE (BEAKER) (test 103 meq/L 98-107 qnzi=953) CO2 (BEAKER) (test 25 meq/L 22-29 qvjy=264) BLOOD UREA NITROGEN 13 mg/dL 7-21 (BEAKER) (test jrtq=956) CREATININE (BEAKER) (test 0.68 mg/dL 0.57-1.25 grxh=218) GLUCOSE RANDOM (BEAKER) 190 mg/dL 70-105 (test rmbj=325) CALCIUM (BEAKER) (test 7.3 mg/dL 8.4-10.2 yvrm=916) EGFR (BEAKER) (test 119 mL/min/1.73 sq m ESTIMATED GFR IS NOT umaa=1553) ACCURATE CREATININE CLEARANCE IN PREDICTING GLOMERULAR FILTRATION RATE. ESTIMATED GFR IS NOT APPLICABLE FOR DIALYSIS PATIENTS. [id number] 04:09:00 Test Item Value Reference Range Comments MAGNESIUM (BEAKER) (test foyw=218) 1.9 mg/dL 1.6-2.6 CBC (HEMOGRAM ONLY)2017-06-15 03:54:00 Test Item Value Reference Range Comments WHITE BLOOD CELL COUNT (BEAKER) (test agmj=737) 8.2 K/ L 3.5-10.5 RED BLOOD CELL COUNT (BEAKER) (test wnnu=728) 2.80 M/ L 4.63-6.08 HEMOGLOBIN (BEAKER) (test dfxy=732) 8.4 GM/DL 13.7-17.5 HEMATOCRIT (BEAKER) (test faju=965) 25.3 % 40.1-51.0 MEAN CORPUSCULAR VOLUME (BEAKER) (test yqjh=664) 90.4 fL 79.0-92.2 MEAN CORPUSCULAR HEMOGLOBIN (BEAKER) (test 30.0 pg 25.7-32.2 ykfq=913) MEAN CORPUSCULAR HEMOGLOBIN CONC (BEAKER) (test 33.2 GM/DL 32.3-36.5 giqu=272) RED CELL DISTRIBUTION WIDTH (BEAKER) (test 13.0 % 11.6-14.4 xsmd=752) PLATELET COUNT (BEAKER) (test zlxy=912) 123 K/CU MM 150-450 MEAN PLATELET VOLUME (BEAKER) (test twaw=677) 9.8 fL 9.4-12.4 NUCLEATED RED BLOOD CELLS (BEAKER) (test 0 /100 WBC 0-0 ales=207) POCT-GLUCOSE [id number] 21:28:00 Test Item Value Reference Range Comments POC-GLUCOSE METER (BEAKER) 275 mg/dL 70-110 TESTED AT [address] (test qcbi=0052) [place] [address] [id number] 19:13:00 Test Item Value Reference Range Comments POTASSIUM (BEAKER) (test koyw=848) 3.4 meq/L 3.5-5.1 [id number] 19:13:00 Test Item Value Reference Range Comments MAGNESIUM (BEAKER) (test dvza=451) 1.9 mg/dL 1.6-2.6 CALCIUM, [id number] 18:47:00 Test Item Value Reference Range Comments CALCIUM IONIZED (BEAKER) (test moag=238) 1.06 mmol/L 1.12-1.27 PH, BLOOD (BEAKER) (test cnep=7571) 7.53 POCT-GLUCOSE [id number] 12:45:00 Test Item Value Reference Range Comments POC-GLUCOSE METER (BEAKER) 206 mg/dL 70-110 TESTED AT [address] (test mikm=7550) [place] [address] POCT-GLUCOSE [id number] 08:37:00 Test Item Value Reference Range Comments POC-GLUCOSE METER (BEAKER) 238 mg/dL 70-110 TESTED AT [address] (test bnzo=5474) [facility] [address] RAD, CHEST, 1 VIEW, NON [id number] 08:12:00Reason for exam:->acute pulmonary insufficiencyShould this be performed at the bedside?->YesFINAL REPORT HISTORY : acute pulmonary insufficiency. Comparison: 06/13/2017 Comment: Single portable view of the chest was obtained. The cardio silhouette size is enlarged. There is widening of the mediastinum. Support lines and tubes are unchanged. No pneumothorax is seen. There is some pulmonary venous congestion. Some diffuse parenchymal airspace disease may represent interstitial edema or a nonspecific pneumonitis. There may be a small left sided pleural effusion. Signed:Deyanira Bedolla MDReport Verified Date/Time: 06/14/2017 08:12:14 Reading Location: [facility] Diagnostic Imaging Reading Room - [place] [address] 08 :12 AMBASIC METABOLIC [id number] 06:10:00 Test Item Value Reference Range Comments SODIUM (BEAKER) (test 140 meq/L 136-145 qvzh=669) POTASSIUM (BEAKER) (test 3.5 meq/L 3.5-5.1 ydso=961) CHLORIDE (BEAKER) (test 107 meq/L 98-107 olch=753) CO2 (BEAKER) (test 27 meq/L 22-29 qokw=442) BLOOD UREA NITROGEN 16 mg/dL 7-21 (BEAKER) (test ouge=528) CREATININE (BEAKER) (test 0.62 mg/dL 0.57-1.25 lvoe=471) GLUCOSE RANDOM (BEAKER) 156 mg/dL 70-105 (test tbzy=212) CALCIUM (BEAKER) (test 7.9 mg/dL 8.4-10.2 rumn=373) EGFR (BEAKER) (test 132 mL/min/1.73 sq m ESTIMATED GFR IS NOT lmpb=7988) ACCURATE CREATININE CLEARANCE IN PREDICTING GLOMERULAR FILTRATION RATE. ESTIMATED GFR IS NOT APPLICABLE FOR DIALYSIS PATIENTS. [id number] 06:06:00 Test Item Value Reference Range Comments MAGNESIUM (BEAKER) (test jjpi=847) 2.0 mg/dL 1.6-2.6 CBC (HEMOGRAM ONLY)2017-06-14 05:48:00 Test Item Value Reference Range Comments WHITE BLOOD CELL COUNT (BEAKER) (test hvvu=217) 10.2 K/ L 3.5-10.5 RED BLOOD CELL COUNT (BEAKER) (test crtd=020) 3.08 M/ L 4.63-6.08 HEMOGLOBIN (BEAKER) (test eniw=202) 9.2 GM/DL 13.7-17.5 HEMATOCRIT (BEAKER) (test lyfw=702) 27.5 % 40.1-51.0 MEAN CORPUSCULAR VOLUME (BEAKER) (test ijra=873) 89.3 fL 79.0-92.2 MEAN CORPUSCULAR HEMOGLOBIN (BEAKER) (test 29.9 pg 25.7-32.2 ypig=132) MEAN CORPUSCULAR HEMOGLOBIN CONC (BEAKER) (test 33.5 GM/DL 32.3-36.5 ykuv=671) RED CELL DISTRIBUTION WIDTH (BEAKER) (test 13.8 % 11.6-14.4 udlx=871) PLATELET COUNT (BEAKER) (test fjve=238) 88 K/CU MM 150-450 MEAN PLATELET VOLUME (BEAKER) (test qimt=396) 10.1 fL 9.4-12.4 NUCLEATED RED BLOOD CELLS (BEAKER) (test 0 /100 WBC 0-0 dnnr=580) CALCIUM, [id number] 05:36:00 Test Item Value Reference Range Comments CALCIUM IONIZED (BEAKER) (test irpp=740) 1.06 mmol/L 1.12-1.27 PH, BLOOD (BEAKER) (test mxal=3061) 7.47 POCT-GLUCOSE [id number] 22:37:00 Test Item Value Reference Range Comments POC-GLUCOSE METER (BEAKER) 199 mg/dL 70-110 TESTED AT [address] (test zexm=5607) [facility] [address] POCT-GLUCOSE [id number] 17:38:00 Test Item Value Reference Range Comments POC-GLUCOSE METER (BEAKER) 227 mg/dL 70-110 TESTED AT [address] (test lqzt=8952) [facility] [address] POCT-GLUCOSE [id number] 17:14:00 Test Item Value Reference Range Comments POC-GLUCOSE METER (BEAKER) 192 mg/dL 70-110 TESTED AT [address] (test mpot=2472) [facility] [address] POCT-GLUCOSE [id number] 17:14:00 Test Item Value Reference Range Comments POC-GLUCOSE METER (BEAKER) 206 mg/dL 70-110 TESTED AT [address] (test ellr=5942) [facility] [address] POCT-GLUCOSE [id number] 13:57:00 Test Item Value Reference Range Comments POC-GLUCOSE METER (BEAKER) 267 mg/dL 70-110 TESTED AT [address] (test xpty=6308) [place] [address] POCT-GLUCOSE [id number] 13:57:00 Test Item Value Reference Range Comments POC-GLUCOSE METER (BEAKER) 212 mg/dL 70-110 TESTED AT [address] (test bxyj=5265) [place] [address] RAD, CHEST, 1 VIEW, NON [id number] 08:59:00Reason for exam:->acute pulmonary insufficiencyShould this be performed at the bedside?->YesFINAL REPORT HISTORY : acute pulmonary insufficiency. Comparison: 06/12/2017 Comment: Single portable view of the chest was obtained. The cardiac silhouette size is enlarged. Support lines and tubes are unchanged. No pneumothorax is seen. There are findings of pulmonary venous congestion. Prominent interstitial lung markings may represent interstitial edema. A left- sided large bore chest tube is in place. There is some airspace disease/ consolidation in the left lung base that may represent atelectasis, pneumonitis or aspiration. A small effusion cannot be excluded. Signed: Deyanira Bedolla MDRvladort Verified Date/Time: 06/13/2017 08:59:25 Reading Location: [facility] Diagnostic Imaging Reading Room - [place] [address] POCT-GLUCOSE [id number] 08:58:00 Test Item Value Reference Range Comments POC-GLUCOSE METER (BEAKER) 279 mg/dL 70-110 TESTED AT [address] (test zlwc=7571) [place] [address] POCT-GLUCOSE [id number] 08:58:00 Test Item Value Reference Range Comments POC-GLUCOSE METER (BEAKER) 272 mg/dL 70-110 TESTED AT [facility] [address] [facility] (test luen=3526) [facility] [address] POCT-GLUCOSE [id number] 08:58:00 Test Item Value Reference Range Comments POC-GLUCOSE METER (BEAKER) 269 mg/dL 70-110 TESTED AT [facility] [address] [facility] (test cfrf=0532) [facility] [address] BASIC METABOLIC [id number] 04:41:00 Test Item Value Reference Range Comments SODIUM (BEAKER) (test 142 meq/L 136-145 pcgn=632) POTASSIUM (BEAKER) (test 4.0 meq/L 3.5-5.1 sxjb=331) CHLORIDE (BEAKER) (test 110 meq/L 98-107 yqmk=693) CO2 (BEAKER) (test 23 meq/L 22-29 mafo=235) BLOOD UREA NITROGEN 18 mg/dL 7-21 (BEAKER) (test dtmf=435) CREATININE (BEAKER) (test 0.79 mg/dL 0.57-1.25 ydwp=327) GLUCOSE RANDOM (BEAKER) 248 mg/dL 70-105 (test ddis=324) CALCIUM (BEAKER) (test 8.2 mg/dL 8.4-10.2 pmql=784) EGFR (BEAKER) (test 100 mL/min/1.73 sq m ESTIMATED GFR IS NOT xbzp=3136) ACCURATE CREATININE CLEARANCE IN PREDICTING GLOMERULAR FILTRATION RATE. ESTIMATED GFR IS NOT APPLICABLE FOR DIALYSIS PATIENTS. [id number] 04:40:00 Test Item Value Reference Range Comments MAGNESIUM (BEAKER) (test krqc=727) 2.3 mg/dL 1.6-2.6 CALCIUM, [id number] 04:30:00 Test Item Value Reference Range Comments CALCIUM IONIZED (BEAKER) (test qoku=791) 1.11 mmol/L 1.12-1.27 PH, BLOOD (BEAKER) (test woxm=1005) 7.44 CBC (HEMOGRAM ONLY)2017-06-13 04:27:00 Test Item Value Reference Range Comments WHITE BLOOD CELL COUNT (BEAKER) (test wicc=936) 11.5 K/ L 3.5-10.5 RED BLOOD CELL COUNT (BEAKER) (test aucr=693) 2.97 M/ L 4.63-6.08 HEMOGLOBIN (BEAKER) (test fvbk=474) 8.8 GM/DL 13.7-17.5 HEMATOCRIT (BEAKER) (test tupt=970) 26.5 % 40.1-51.0 MEAN CORPUSCULAR VOLUME (BEAKER) (test hnzn=098) 89.2 fL 79.0-92.2 MEAN CORPUSCULAR HEMOGLOBIN (BEAKER) (test 29.6 pg 25.7-32.2 tyqr=533) MEAN CORPUSCULAR HEMOGLOBIN CONC (BEAKER) (test 33.2 GM/DL 32.3-36.5 tvrk=438) RED CELL DISTRIBUTION WIDTH (BEAKER) (test 13.9 % 11.6-14.4 jofg=801) PLATELET COUNT (BEAKER) (test kbmw=717) 98 K/CU MM 150-450 MEAN PLATELET VOLUME (BEAKER) (test ivaq=953) 10.2 fL 9.4-12.4 NUCLEATED RED BLOOD CELLS (BEAKER) (test 0 /100 WBC 0-0 reum=293) [id number] 00:45:00 Test Item Value Reference Range Comments MAGNESIUM (BEAKER) (test 2.0 mg/dL 1.6-2.6 Specimen slightly hemolyzed oklf=438) Check Serum Magnesium level 2 hours after IV magnesium replacement.Check Serum Potassium level 2 hours after oral potassium replacement completed or 30 min after intravenous potassium replacement.[id number] 00:45:00 Test Item Value Reference Range Comments POTASSIUM (BEAKER) (test 3.9 meq/L 3.5-5.1 Specimen slightly hemolyzed dfsb=727) Check Serum Magnesium level 2 hours after IV magnesium replacement.Check Serum Potassium level 2 hours after oral potassium replacement completed or 30 min after intravenous potassium replacement.CALCIUM, [id number] 00:07:00 Test Item Value Reference Range Comments CALCIUM IONIZED (BEAKER) (test nzfc=131) 1.09 mmol/L 1.12-1.27 PH, BLOOD (BEAKER) (test ytpl=7729) 7.44 Check serum Ionized Calcium level after 4 hours after IV Calcium replacement.POCT-GLUCOSE [id number] 23:34:00 Test Item Value Reference Range Comments POC-GLUCOSE METER (BEAKER) 256 mg/dL 70-110 TESTED AT [facility] [address] [facility] (test csjs=3292) [facility] [id number] RAD, CHEST, 1 VIEW, NON [id number] 18:40:00Reason for exam:->hypoxia, Acute pulmonary edemaFINAL REPORT Chest, portable AP view History: Hypoxia, acute pulmonary edema Comparison: Earlier the same day at 6:40 AM IMPRESSION: The cardiac mediastinal silhouette is stably enlarged. Patient status post median sternotomy. Right IJ central venous catheter tip terminates in the distal SVC. Left chest tube and mediastinal drains are in place. There is no pneumothorax. There is a small left pleural effusion. Interstitial edema is present. There is no pneumothorax. Signed: Dewayne Quiroga Verified Date/Time: 06/12/2017 18:40:13 Reading Location: [address] ConsultReading Room BLOOD GAS, [id number] 18:17:00 Test Item Value Reference Range Comments PH ARTERIAL (BEAKER) (test letq=889) 7.41 7.35-7.45 PCO2 ARTERIAL (BEAKER) (test oyfz=673) 36 mmHg 35-45 PO2 ARTERIAL (BEAKER) (test uami=982) 103 mmHg 80-90 O2 SATURATION ARTERIAL (BEAKER) (test ffdv=334) 97.6 % 96.0-97.0 HCO3 ARTERIAL (BEAKER) (test dxim=855) 22 mmol/L 21-29 BASE EXCESS ARTERIAL (BEAKER) (test jdwr=297) -2.1 mmol/L -2.0-3.0 PATIENT TEMPERATURE (BEAKER) (test gxtz=7980) 37.9 C FIO2 (BEAKER) (test qazb=1983) 52.0 % POCT-GLUCOSE [id number] 17:27:00 Test Item Value Reference Range Comments POC-GLUCOSE METER (BEAKER) 173 mg/dL 70-110 TESTED AT [facility] [address] [facility] (test fpfo=3818) [facility] [address] CBC W/PLT COUNT & AUTO [id number] 14:11:00 Test Item Value Reference Range Comments WHITE BLOOD CELL COUNT (BEAKER) (test gmnk=956) 9.0 K/ L 3.5-10.5 RED BLOOD CELL COUNT (BEAKER) (test egbp=967) 2.94 M/ L 4.63-6.08 HEMOGLOBIN (BEAKER) (test rtso=942) 8.8 GM/DL 13.7-17.5 HEMATOCRIT (BEAKER) (test blxw=978) 26.0 % 40.1-51.0 MEAN CORPUSCULAR VOLUME (BEAKER) (test qate=341) 88.4 fL 79.0-92.2 MEAN CORPUSCULAR HEMOGLOBIN (BEAKER) (test 29.9 pg 25.7-32.2 qykx=953) MEAN CORPUSCULAR HEMOGLOBIN CONC (BEAKER) (test 33.8 GM/DL 32.3-36.5 rdne=049) RED CELL DISTRIBUTION WIDTH (BEAKER) (test 13.2 % 11.6-14.4 kjjq=528) PLATELET COUNT (BEAKER) (test miim=237) 93 K/CU MM 150-450 MEAN PLATELET VOLUME (BEAKER) (test mfjj=228) 10.3 fL 9.4-12.4 NUCLEATED RED BLOOD CELLS (BEAKER) (test 0 /100 WBC 0-0 yxeu=466) IMMATURE GRANULOCYTES-RELATIVE PERCENT (BEAKER) 0 % 0-1 (test wevj=5423) (MANUAL DIFFERENTIAL)2017-06-12 14:11:00 Test Item Value Reference Range Comments NEUTROPHILS - REL (DIFF) (BEAKER) (test 73 % mvww=7867) LYMPHOCYTES - REL (DIFF) (BEAKER) (test 15 % vnmc=0409) MONOCYTES - REL (DIFF) (BEAKER) (test zqir=2326) 3 % EOSINOPHILS - REL (DIFF) (BEAKER) (test 1 % ypgg=3986) METAMYELOCYTES-REL (DIFF) (BEAKER) (test 1 % 0-0 juzy=620) MYELOCYTES-REL (DIFF) (BEAKER) (test duii=8418) 1 % 0-0 BANDS - REL (DIFF) (BEAKER) (test zohv=8850) 6 % 0-10 NEUTROPHILS - ABS (DIFF) (BEAKER) (test 6.57 K/ L 1.80-8.00 cqod=5659) LYMPHOCYTES - ABS (DIFF) (BEAKER) (test 1.35 K/ L 1.48-4.50 aiyl=2918) MONOCYTES - ABS (DIFF) (BEAKER) (test oxgi=2114) 0.27 K/ L 0.00-1.30 EOSINOPHILS - ABS (DIFF) (BEAKER) (test 0.09 K/ L 0.00-0.50 rrop=9606) METAMYELOCTYES - ABS (DIFF) (BEAKER) (test 0.09 K/ L 0.00-0.00 xoaa=170) BANDS-ABS (DIFF) (BEAKER) (test qnrz=4960) 0.5 K/ L 0.0-0.8 MYELOCYTES-ABS (DIFF) (BEAKER) (test hrax=7952) 0.09 K/ L 0.00-0.00 TOTAL COUNTED (BEAKER) (test equw=2262) 100 BANDS + SEGMENTED NEUTROPHILS (BEAKER) (test 7.11 arcn=9341) WBC MORPHOLOGY (BEAKER) (test fwlb=289) Normal PLT MORPHOLOGY (BEAKER) (test sdrj=280) Normal POLYCHROMATOPHILLIC RBCS(BEAKER) (test jsrq=272) 2+ moderate URINE [id number] 12:45:00 Test Item Value Reference Range Comments CULTURE (BEAKER) (test 30-39,000 col/mL Beta-hemolytic agnx=2320) streptococcus group B, by serological groupingof a second type 40-49,000 col/ml skin floraPOCT-GLUCOSE [id number] 12:24:00 Test Item Value Reference Range Comments POC-GLUCOSE METER ([facility]) 107 mg/dL 70-110 TESTED AT [address] (test kbyg=8256) [facility] [address] POTASSIUM-STAT [id number] 12:14:00 Test Item Value Reference Range Comments POTASSIUM (BEAKER) (test bkow=911) 3.7 meq/L 3.6-5.5 CALCIUM, [id number] 12:14:00 Test Item Value Reference Range Comments CALCIUM IONIZED (BEAKER) (test bqrf=242) 1.13 mmol/L 1.12-1.27 PH, BLOOD (BEAKER) (test hlum=5087) 7.43 BLOOD GAS, [id number] 12:14:00 Test Item Value Reference Range Comments PH ARTERIAL (BEAKER) (test enqh=302) 7.40 7.35-7.45 PCO2 ARTERIAL (BEAKER) (test nwdz=191) 46 mmHg 35-45 PO2 ARTERIAL (BEAKER) (test trhu=020) 92 mmHg 80-90 O2 SATURATION ARTERIAL (BEAKER) (test rver=796) 96.3 % 96.0-97.0 HCO3 ARTERIAL (BEAKER) (test bskz=631) 28 mmol/L 21-29 BASE EXCESS ARTERIAL (BEAKER) (test itfg=577) 2.9 mmol/L -2.0-3.0 PATIENT TEMPERATURE (BEAKER) (test enoq=2076) 38.7 C FIO2 (BEAKER) (test qhej=9446) 40.0 % GLUCOSE-STAT [id number] 12:14:00 Test Item Value Reference Range Comments GLUCOSE RANDOM (BEAKER) (test jopc=003) 121 mg/dL 70-110 POCT-GLUCOSE [id number] 09:21:00 Test Item Value Reference Range Comments POC-GLUCOSE METER (BEAKER) 96 mg/dL 70-110 TESTED AT [address] (test rqxw=5758) [place] [address] RAD, CHEST, 1 VIEW, NON [id number] 09:04:00Reason for exam:->acute pulmonary insufficiencyShould this be performed at the bedside?->YesFINAL REPORT Chest one view. Clinical history: acute pulmonary insufficiencyComparison: 06/11/2017 Discussion: A frontal chest is provided. Lines and tubes are unchanged. Stablecardiomediastinal contours. Low lung volume. There is mild bibasilar atelectasis or consolidation. Vessels appears slightly prominent. No new consolidation, no pneumothorax. Signed: Taiwo Brenner Verified Date/Time: 06/12/2017 09:04:31 Reading [facility] Reading RoomElectronically signed by: TAIWO BRENNER M.D. on 09:04 AMPOCT-GLUCOSE [id number] 07:19:00 Test Item Value Reference Range Comments POC-GLUCOSE METER (BEAKER) 132 mg/dL 70-110 TESTED AT [address] (test ajcg=0867) [place] [address] POCT-GLUCOSE [id number] 06:37:00 Test Item Value Reference Range Comments POC-GLUCOSE METER (BEAKER) 72 mg/dL 70-110 TESTED AT [address] (test bdez=2866) [place] [address] POCT-GLUCOSE [id number] 06:36:00 Test Item Value Reference Range Comments POC-GLUCOSE METER (BEAKER) 112 mg/dL 70-110 TESTED AT [address] (test pvut=1043) [place] [address] POCT-GLUCOSE [id number] 06:36:00 Test Item Value Reference Range Comments POC-GLUCOSE METER (BEAKER) 144 mg/dL 70-110 TESTED AT [address] (test jnof=8132) [place] [address] BLOOD GAS, [id number] 05:43:00 Test Item Value Reference Range Comments PH ARTERIAL (BEAKER) (test anql=848) 7.42 7.35-7.45 PCO2 ARTERIAL (BEAKER) (test ooyr=920) 46 mmHg 35-45 PO2 ARTERIAL (BEAKER) (test wfms=477) 96 mmHg 80-90 O2 SATURATION ARTERIAL (BEAKER) (test hqfm=938) 97.0 % 96.0-97.0 HCO3 ARTERIAL (BEAKER) (test coml=217) 29 mmol/L 21-29 BASE EXCESS ARTERIAL (BEAKER) (test kwoz=257) 4.3 mmol/L -2.0-3.0 PATIENT TEMPERATURE (BEAKER) (test vshf=6645) 38.4 C FIO2 (BEAKER) (test qjno=6482) 40.0 % CALCIUM, [id number] 05:43:00 Test Item Value Reference Range Comments CALCIUM IONIZED (BEAKER) (test gzhn=604) 1.08 mmol/L 1.12-1.27 PH, BLOOD (BEAKER) (test gazl=3019) 7.45 POCT-GLUCOSE [id number] 05:35:00 Test Item Value Reference Range Comments POC-GLUCOSE METER (BEAKER) 94 mg/dL 70-110 TESTED AT [address] (test zvvh=9269) [place] [address] BASIC METABOLIC [id number] 04:40:00 Test Item Value Reference Range Comments SODIUM (BEAKER) (test 144 meq/L 136-145 ismh=401) POTASSIUM (BEAKER) (test 4.0 meq/L 3.5-5.1 afbn=912) CHLORIDE (BEAKER) (test 114 meq/L 98-107 clvv=630) CO2 (BEAKER) (test 26 meq/L 22-29 fvia=962) BLOOD UREA NITROGEN 11 mg/dL 7-21 (BEAKER) (test izoo=881) CREATININE (BEAKER) (test 0.75 mg/dL 0.57-1.25 twwu=766) GLUCOSE RANDOM (BEAKER) 98 mg/dL 70-105 (test ltxf=064) CALCIUM (BEAKER) (test 7.8 mg/dL 8.4-10.2 qogy=495) EGFR (BEAKER) (test 106 mL/min/1.73 sq m ESTIMATED GFR IS NOT jlpx=3329) ACCURATE CREATININE CLEARANCE IN PREDICTING GLOMERULAR FILTRATION RATE. ESTIMATED GFR IS NOT APPLICABLE FOR DIALYSIS PATIENTS. CBC W/PLT COUNT & AUTO [id number] 04:40:00 Test Item Value Reference Range Comments WHITE BLOOD CELL COUNT (BEAKER) (test etqx=324) 11.0 K/ L 3.5-10.5 RED BLOOD CELL COUNT (BEAKER) (test dgge=289) 2.57 M/ L 4.63-6.08 HEMOGLOBIN (BEAKER) (test yorh=654) 7.8 GM/DL 13.7-17.5 HEMATOCRIT (BEAKER) (test jxky=926) 22.7 % 40.1-51.0 MEAN CORPUSCULAR VOLUME (BEAKER) (test ypjn=758) 88.3 fL 79.0-92.2 MEAN CORPUSCULAR HEMOGLOBIN (BEAKER) (test 30.4 pg 25.7-32.2 kofx=165) MEAN CORPUSCULAR HEMOGLOBIN CONC (BEAKER) (test 34.4 GM/DL 32.3-36.5 ixyz=169) RED CELL DISTRIBUTION WIDTH (BEAKER) (test 13.0 % 11.6-14.4 saih=646) PLATELET COUNT (BEAKER) (test dmfu=776) 111 K/CU MM 150-450 MEAN PLATELET VOLUME (BEAKER) (test owng=275) 10.0 fL 9.4-12.4 NUCLEATED RED BLOOD CELLS (BEAKER) (test 0 /100 WBC 0-0 rtpv=630) NEUTROPHILS RELATIVE PERCENT (BEAKER) (test 73 % zqlr=619) LYMPHOCYTES RELATIVE PERCENT (BEAKER) (test 19 % brqf=804) MONOCYTES RELATIVE PERCENT (BEAKER) (test 8 % ufgl=630) EOSINOPHILS RELATIVE PERCENT (BEAKER) (test 0 % nprr=249) BASOPHILS RELATIVE PERCENT (BEAKER) (test 0 % bzcn=814) NEUTROPHILS ABSOLUTE COUNT (BEAKER) (test 7.98 K/ L 1.78-5.38 ecwb=231) LYMPHOCYTES ABSOLUTE COUNT (BEAKER) (test 2.11 K/ L 1.32-3.57 wngu=441) MONOCYTES ABSOLUTE COUNT (BEAKER) (test 0.84 K/ L 0.30-0.82 ydfs=099) EOSINOPHILS ABSOLUTE COUNT (BEAKER) (test 0.00 K/ L 0.04-0.54 ttsy=265) BASOPHILS ABSOLUTE COUNT (BEAKER) (test 0.01 K/ L 0.01-0.08 azjq=722) IMMATURE GRANULOCYTES-RELATIVE PERCENT (BEAKER) 1 % 0-1 (test butm=5883) [id number] 04:38:00 Test Item Value Reference Range Comments MAGNESIUM (BEAKER) (test zrqv=814) 2.2 mg/dL 1.6-2.6 CREATINE KINASE (CK)2017-06-12 04:38:00 Test Item Value Reference Range Comments CREATINE KINASE TOTAL (BEAKER) (test spcp=050) 896 U/L 29-200 LACTIC ACID, ARTERIAL, WHOLE [id number] 04:33:00 Test Item Value Reference Range Comments LACTATE BLOOD ARTERIAL (2) (BEAKER) (test 2.1 mmol/L 0.5-2.2 dgok=8856) Effective 12/08/2015: Units/Reference Range ChangeNew: 0.5-2.2 mmol/L Previous: 5 -20 mg/dLOXYGEN SATURATION, [id number] 04:25:00 Test Item Value Reference Range Comments O2 SATURATION (MEASURED) (BEAKER) (test yyhv=5022) 70.5 % BLOOD GAS, [id number] 02:36:00 Test Item Value Reference Range Comments PH ARTERIAL (BEAKER) (test ntjt=205) 7.47 7.35-7.45 PCO2 ARTERIAL (BEAKER) (test asue=373) 39 mmHg 35-45 PO2 ARTERIAL (BEAKER) (test intm=836) 83 mmHg 80-90 O2 SATURATION ARTERIAL (BEAKER) (test vrzx=197) 96.4 % 96.0-97.0 HCO3 ARTERIAL (BEAKER) (test mcyo=362) 27 mmol/L 21-29 BASE EXCESS ARTERIAL (BEAKER) (test drtb=624) 3.7 mmol/L -2.0-3.0 PATIENT TEMPERATURE (BEAKER) (test tkbi=6709) 37.9 C FIO2 (BEAKER) (test ghho=4123) 50.0 % POCT-GLUCOSE [id number] 02:15:00 Test Item Value Reference Range Comments POC-GLUCOSE METER (BEAKER) 186 mg/dL 70-110 TESTED AT [address] (test hapr=2892) [facility] [address] POCT-GLUCOSE [id number] 01:10:00 Test Item Value Reference Range Comments POC-GLUCOSE METER (BEAKER) 223 mg/dL 70-110 TESTED AT [address] (test zyxy=4577) [facility] [address] POCT-GLUCOSE [id number] 01:10:00 Test Item Value Reference Range Comments POC-GLUCOSE METER (BEAKER) 262 mg/dL 70-110 TESTED AT [address] (test rjlz=7761) [facility] [address] BASIC METABOLIC [id number] 00:21:00 Test Item Value Reference Range Comments SODIUM (BEAKER) (test 142 meq/L 136-145 yvqc=934) POTASSIUM (BEAKER) (test 3.8 meq/L 3.5-5.1 gcou=102) CHLORIDE (BEAKER) (test 109 meq/L 98-107 uiog=663) CO2 (BEAKER) (test 23 meq/L 22-29 empo=782) BLOOD UREA NITROGEN 11 mg/dL 7-21 (BEAKER) (test tegc=632) CREATININE (BEAKER) (test 0.95 mg/dL 0.57-1.25 okgg=814) GLUCOSE RANDOM (BEAKER) 239 mg/dL 70-105 (test kzgl=790) CALCIUM (BEAKER) (test 7.3 mg/dL 8.4-10.2 lnyy=732) EGFR (BEAKER) (test 81 mL/min/1.73 sq m ESTIMATED GFR IS NOT ptou=2997) ACCURATE CREATININE CLEARANCE IN PREDICTING GLOMERULAR FILTRATION RATE. ESTIMATED GFR IS NOT APPLICABLE FOR DIALYSIS PATIENTS. LACTIC ACID, ARTERIAL, WHOLE [id number] 00:18:00 Test Item Value Reference Range Comments LACTATE BLOOD ARTERIAL (2) (BEAKER) (test 7.4 mmol/L 0.5-2.2 sito=6359) Effective 12/08/2015: Units/Reference Range ChangeNew: 0.5-2.2 mmol/L Previous: 5 -20 mg/dLCALCIUM, [id number] 00:03:00 Test Item Value Reference Range Comments CALCIUM IONIZED (BEAKER) (test salj=592) 1.04 mmol/L 1.12-1.27 PH, BLOOD (BEAKER) (test ttja=4001) 7.39 BLOOD GAS, [id number] 00:03:00 Test Item Value Reference Range Comments PH ARTERIAL (BEAKER) (test veow=758) 7.38 7.35-7.45 PCO2 ARTERIAL (BEAKER) (test vorc=342) 41 mmHg 35-45 PO2 ARTERIAL (BEAKER) (test atwc=602) 104 mmHg 80-90 O2 SATURATION ARTERIAL (BEAKER) (test zetz=570) 97.3 % 96.0-97.0 HCO3 ARTERIAL (BEAKER) (test bget=021) 23 mmol/L 21-29 BASE EXCESS ARTERIAL (BEAKER) (test opah=111) -1.5 mmol/L -2.0-3.0 PATIENT TEMPERATURE (BEAKER) (test sdrp=2835) 38.2 C FIO2 (BEAKER) (test yuxh=5928) 50.0 % POCT-GLUCOSE [id number] 23:14:00 Test Item Value Reference Range Comments POC-GLUCOSE METER (BEAKER) 271 mg/dL 70-110 TESTED AT [address] (test veci=5653) [facility] [address] POCT-GLUCOSE [id number] 23:14:00 Test Item Value Reference Range Comments POC-GLUCOSE METER (BEAKER) 313 mg/dL 70-110 TESTED AT [address] (test dzpb=4081) [facility] [address] POCT-GLUCOSE [id number] 23:14:00 Test Item Value Reference Range Comments POC-GLUCOSE METER (BEAKER) 305 mg/dL 70-110 Notified ZOË GARG/TESTED AT [facility] (test znjd=5775) [address] [facility] [address] BLOOD GAS, [id number] 22:24:00 Test Item Value Reference Range Comments PH ARTERIAL (BEAKER) (test xjfg=531) 7.28 7.35-7.45 PCO2 ARTERIAL (BEAKER) (test jjrm=165) 34 mmHg 35-45 PO2 ARTERIAL (BEAKER) (test rprq=201) 117 mmHg 80-90 O2 SATURATION ARTERIAL (BEAKER) (test vmmi=749) 97.6 % 96.0-97.0 HCO3 ARTERIAL (BEAKER) (test vzah=049) 15 mmol/L 21-29 BASE EXCESS ARTERIAL (BEAKER) (test uadv=755) -10.4 mmol/L -2.0-3.0 PATIENT TEMPERATURE (BEAKER) (test ycdq=0283) 38.0 C FIO2 (BEAKER) (test vfef=8920) 50.0 % HEPATIC FUNCTION [id number] 22:13:00 Test Item Value Reference Range Comments TOTAL PROTEIN (BEAKER) (test tjgg=622) 5.1 gm/dL 6.0-8.3 ALBUMIN (BEAKER) (test qvnk=6105) 3.1 g/dL 3.5-5.0 BILIRUBIN TOTAL (BEAKER) (test vgpo=547) 2.0 mg/dL 0.2-1.2 BILIRUBIN DIRECT (BEAKER) (test mqag=504) 0.9 mg/dL 0.1-0.5 ALKALINE PHOSPHATASE (BEAKER) (test kang=985) 39 U/L 40-150 AST (SGOT) (BEAKER) (test nrww=213) 70 U/L 5-34 ALT (SGPT) (BEAKER) (test ndyz=322) 28 U/L 6-55 RAD, CHEST, 1 VIEW, NON [id number] 22:04:00Reason for exam:->IABP positioningFINAL REPORT EXAMINATION: AP PORTABLE CHEST RADIOGRAPH CLINICAL INDICATION:Intra-aortic balloon pump IMPRESSION: Compared with 06/11/2017, 1655 hours The radiopaque marker for the balloon pump projects over the aortic arch. Tip of the endotracheal tube projects approximately 2.5 cm superior to the lina. Tip of the nasogastric tube projects over the left upper abdomen in theregion of the stomach. Midline sternotomy and surgical chest tube again noted. Cardiac and mediastinal contours are grossly stable. Relatively stable opacities persist in the perihilar regions, along the heart borders at the left lung base. No definite evidence of new lung consolidation or pneumothorax. Signed: Glory Kennedy MDReport Verified Date/Time: 06/11/2017 22:04:36 Reading Location: [address] Reading Room LACTIC ACID , ARTERIAL, WHOLE [id number] 20:46:00 Test Item Value Reference Range Comments LACTATE BLOOD ARTERIAL (2) (BEAKER) (test 12.1 mmol/L 0.5-2.2 vdim=2656) Effective 12/08/2015: Units/Reference Range ChangeNew: 0.5-2.2 mmol/L Previous: 5 -20 mg/[id number] 20:44:00 Test Item Value Reference Range Comments POTASSIUM (BEAKER) (test cbec=403) 4.6 meq/L 3.5-5.1 [id number] 20:44:00 Test Item Value Reference Range Comments MAGNESIUM (BEAKER) (test tspz=285) 2.2 mg/dL 1.6-2.6 [id number] 20:44:00 Test Item Value Reference Range Comments GLUCOSE RANDOM (BEAKER) (test ogwd=007) 326 mg/dL 70-105 OXYGEN SATURATION, [id number] 20:31:00 Test Item Value Reference Range Comments O2 SATURATION (MEASURED) (BEAKER) (test rjiq=5793) 79.3 % BLOOD GAS, [id number] 20:28:00 Test Item Value Reference Range Comments PH ARTERIAL (BEAKER) (test pvel=709) 7.27 7.35-7.45 PCO2 ARTERIAL (BEAKER) (test rxkh=922) 30 mmHg 35-45 PO2 ARTERIAL (BEAKER) (test ihli=290) 155 mmHg 80-90 O2 SATURATION ARTERIAL (BEAKER) (test huks=788) 98.8 % 96.0-97.0 HCO3 ARTERIAL (BEAKER) (test ffee=997) 13 mmol/L 21-29 BASE EXCESS ARTERIAL (BEAKER) (test bbff=935) -12.3 mmol/L -2.0-3.0 PATIENT TEMPERATURE (BEAKER) (test jyne=1883) 36.8 C FIO2 (BEAKER) (test mozf=6553) 50.0 % SODIUM NA-STAT [id number] 20:28:00 Test Item Value Reference Range Comments SODIUM (BEAKER) (test wmkf=448) 133 meq/L 135-148 GLUCOSE-STAT [id number] 20:28:00 Test Item Value Reference Range Comments GLUCOSE RANDOM (BEAKER) (test rhvs=752) 311 mg/dL 70-110 HGB/HCT (H&H) - STAT [id number] 20:28:00 Test Item Value Reference Range Comments HEMOGLOBIN (BEAKER) (test frsj=099) 11.6 g/dL 13.0-16.8 HEMATOCRIT (BEAKER) (test unmf=526) 34.0 % 40.0-50.0 CALCIUM, [id number] 20:27:00 Test Item Value Reference Range Comments CALCIUM IONIZED (BEAKER) (test vwjr=934) 1.02 mmol/L 1.12-1.27 PH, BLOOD (BEAKER) (test dfdr=9897) 7.27 POTASSIUM-STAT [id number] 20:27:00 Test Item Value Reference Range Comments POTASSIUM (BEAKER) (test vkzk=738) 4.4 meq/L 3.6-5.5 RAD, CHEST, 1 VIEW, NON [id number] 18:16:00Reason for exam:->Post ACBShould this be performed at the bedside?->YesFINAL REPORT Chest dated 06/11/2017 COMPARISON: Same day Clinical Information: Post ACB Comment: Patient is status post bypass surgery. Cardiac silhouette is enlarged. Pulmonaryvasculature is indistinct. Interstitial disease is seen bilaterally suggestive of the lesser congestion. No pneumothorax is noted. Endotracheal tube, mediastinal tube, nasogastric tube, left chest tube, and right IJ central venous catheter are present. Intra-aortic balloon pump device is present with marked seen in the mid descending thoracic aorta. Impression: Postoperative chest with vascular congestion. Signed: Mani Cannon MDReport Verified Date/Time: 06/11/2017 18:16:00 Reading Location: [facility] [id number] Consult Reading Room 06: 16 PMCBC W/PLT COUNT & AUTO [id number] 17:46:00 Test Item Value Reference Range Comments WHITE BLOOD CELL COUNT (BEAKER) (test gahl=603) 17.1 K/ L 3.5-10.5 RED BLOOD CELL COUNT (BEAKER) (test pzco=258) 3.62 M/ L 4.63-6.08 HEMOGLOBIN (BEAKER) (test talr=284) 11.0 GM/DL 13.7-17.5 HEMATOCRIT (BEAKER) (test geci=604) 32.0 % 40.1-51.0 MEAN CORPUSCULAR VOLUME (BEAKER) (test vsjf=007) 88.4 fL 79.0-92.2 MEAN CORPUSCULAR HEMOGLOBIN (BEAKER) (test 30.4 pg 25.7-32.2 movk=161) MEAN CORPUSCULAR HEMOGLOBIN CONC (BEAKER) (test 34.4 GM/DL 32.3-36.5 pvys=261) RED CELL DISTRIBUTION WIDTH (BEAKER) (test 12.7 % 11.6-14.4 ohmc=947) PLATELET COUNT (BEAKER) (test ogtw=395) 97 K/CU MM 150-450 MEAN PLATELET VOLUME (BEAKER) (test luvq=308) 9.0 fL 9.4-12.4 NUCLEATED RED BLOOD CELLS (BEAKER) (test 0 /100 WBC 0-0 lbks=793) NEUTROPHILS RELATIVE PERCENT (BEAKER) (test 83 % tsta=651) LYMPHOCYTES RELATIVE PERCENT (BEAKER) (test 7 % qgxp=732) MONOCYTES RELATIVE PERCENT (BEAKER) (test 9 % xhcm=739) EOSINOPHILS RELATIVE PERCENT (BEAKER) (test 0 % yfdl=044) BASOPHILS RELATIVE PERCENT (BEAKER) (test 0 % gvly=825) NEUTROPHILS ABSOLUTE COUNT (BEAKER) (test 14.24 K/ L 1.78-5.38 qwbz=002) LYMPHOCYTES ABSOLUTE COUNT (BEAKER) (test 1.22 K/ L 1.32-3.57 spbd=737) MONOCYTES ABSOLUTE COUNT (BEAKER) (test iktv=589) 1.54 K/ L 0.30-0.82 EOSINOPHILS ABSOLUTE COUNT (BEAKER) (test 0.00 K/ L 0.04-0.54 yceh=416) BASOPHILS ABSOLUTE COUNT (BEAKER) (test ngrl=850) 0.03 K/ L 0.01-0.08 IMMATURE GRANULOCYTES-RELATIVE PERCENT (BEAKER) 1 % 0-1 (test einr=4789) (MANUAL DIFFERENTIAL)2017-06-11 17:46:00 Test Item Value Reference Range Comments NEUTROPHILS - REL (DIFF) (BEAKER) (test 78 % tvch=8015) LYMPHOCYTES - REL (DIFF) (BEAKER) (test 4 % vzyx=7266) MONOCYTES - REL (DIFF) (BEAKER) (test dzyn=0112) 4 % BANDS - REL (DIFF) (BEAKER) (test zfuk=3870) 14 % 0-10 NEUTROPHILS - ABS (DIFF) (BEAKER) (test 13.34 K/ L 1.80-8.00 ocaf=3172) LYMPHOCYTES - ABS (DIFF) (BEAKER) (test 0.68 K/ L 1.48-4.50 zeca=5076) MONOCYTES - ABS (DIFF) (BEAKER) (test zfqo=1016) 0.68 K/ L 0.00-1.30 BANDS-ABS (DIFF) (BEAKER) (test vbsz=4694) 2.4 K/ L 0.0-0.8 TOTAL COUNTED (BEAKER) (test tzvv=7971) 100 BANDS + SEGMENTED NEUTROPHILS (BEAKER) (test 15.73 qauf=1573) WBC MORPHOLOGY (BEAKER) (test ztbu=080) Normal PLT MORPHOLOGY (BEAKER) (test malg=534) Normal RBC MORPHOLOGY (BEAKER) (test wlqo=582) Normal BASIC METABOLIC [id number] 17:39:00 Test Item Value Reference Range Comments SODIUM (BEAKER) (test 135 meq/L 136-145 pcpk=987) POTASSIUM (BEAKER) (test 4.6 meq/L 3.5-5.1 Specimen slightly hncr=517) hemolyzed CHLORIDE (BEAKER) (test 109 meq/L 98-107 vwla=930) CO2 (BEAKER) (test 19 meq/L 22-29 ovef=096) BLOOD UREA NITROGEN 10 mg/dL 7-21 (BEAKER) (test wwim=847) CREATININE (BEAKER) (test 0.72 mg/dL 0.57-1.25 Specimen slightly tpnz=004) hemolyzed GLUCOSE RANDOM (BEAKER) 301 mg/dL 70-105 (test shxp=021) CALCIUM (BEAKER) (test 7.2 mg/dL 8.4-10.2 gixb=151) EGFR (BEAKER) (test 111 mL/min/1.73 sq m ESTIMATED GFR IS NOT bbqx=3659) ACCURATE CREATININE CLEARANCE IN PREDICTING GLOMERULAR FILTRATION RATE. ESTIMATED GFR IS NOT APPLICABLE FOR DIALYSIS PATIENTS. [id number] 17:37:00 Test Item Value Reference Range Comments MAGNESIUM (BEAKER) (test 2.3 mg/dL 1.6-2.6 Specimen slightly hemolyzed qhnn=024) LACTIC ACID, ARTERIAL, WHOLE [id number] 17:36:00 Test Item Value Reference Range Comments LACTATE BLOOD ARTERIAL (2) 3.1 mmol/L 0.5-2.2 Specimen slightly hemolyzed (BEAKER) (test kgiz=0894) Effective 12/08/2015: Units/Reference Range ChangeNew: 0.5-2.2 mmol/L Previous: 5 -20 mg/dLPT/[id number] 17:19:00 Test Item Value Reference Range Comments PROTIME (BEAKER) (test brut=393) 18.3 seconds 11.7-14.7 INR (BEAKER) (test tbfq=189) 1.5 <=5.9 PARTIAL THROMBOPLASTIN TIME (BEAKER) (test 36.6 seconds 22.5-36.0 ecos=124) RECOMMENDED COUMADIN/WARFARIN INR THERAPY RANGESSTANDARD DOSE: 2.0 - 3.0 Includes: PROPHYLAXIS forvenous thrombosis, systemic embolization; TREATMENT for venous thrombosis and/or pulmonary embolus.HIGH RISK: Target INR is 2.5-3.5 for patients with mechanical heart valves.[id number] 17:18:00 Test Item Value Reference Range Comments FIBRINOGEN LEVEL (BEAKER) (test rlqf=271) 317 mg/dl 225-434 POTASSIUM-STAT [id number] 17:07:00 Test Item Value Reference Range Comments POTASSIUM (BEAKER) (test ntfa=954) 4.3 meq/L 3.6-5.5 CALCIUM, [id number] 17:07:00 Test Item Value Reference Range Comments CALCIUM IONIZED (BEAKER) (test dclo=936) 1.03 mmol/L 1.12-1.27 PH, BLOOD (BEAKER) (test euiv=4681) 7.36 GLUCOSE-STAT [id number] 17:07:00 Test Item Value Reference Range Comments GLUCOSE RANDOM (BEAKER) (test lvhh=184) 282 mg/dL 70-110 BLOOD GAS, [id number] 17:07:00 Test Item Value Reference Range Comments PH ARTERIAL (BEAKER) (test nmbb=051) 7.36 7.35-7.45 PCO2 ARTERIAL (BEAKER) (test iolv=053) 37 mmHg 35-45 PO2 ARTERIAL (BEAKER) (test krgy=763) 157 mmHg 80-90 O2 SATURATION ARTERIAL (BEAKER) (test yabw=940) 99.0 % 96.0-97.0 HCO3 ARTERIAL (BEAKER) (test cvvx=737) 21 mmol/L 21-29 BASE EXCESS ARTERIAL (BEAKER) (test wztr=143) -4.7 mmol/L -2.0-3.0 PATIENT TEMPERATURE (BEAKER) (test rknc=9556) 36.3 C FIO2 (BEAKER) (test stut=2298) 60.0 % SODIUM NA-STAT [id number] 17:07:00 Test Item Value Reference Range Comments SODIUM (BEAKER) (test jvjp=320) 132 meq/L 135-148 HGB/HCT (H&H) - STAT [id number] 17:07:00 Test Item Value Reference Range Comments HEMOGLOBIN (BEAKER) (test tvvk=406) 11.5 g/dL 13.0-16.8 HEMATOCRIT (BEAKER) (test ubww=296) 34.0 % 40.0-50.0 OXYGEN SATURATION, [id number] 17:05:00 Test Item Value Reference Range Comments O2 SATURATION (MEASURED) (BEAKER) (test rwhk=2435) 73.7 % [id number] 16:24:00 Test Item Value Reference Range Comments ACTIVATED CLOTTING TIME 136 sec TESTED AT [facility] [address] [place] [address] (BEAKER) (test tcip=661) [place] [address] [id number] 16:24:00 Test Item Value Reference Range Comments ACTIVATED CLOTTING TIME 532 sec TESTED AT [place] [address] [address] (BEAKER) (test fhwt=705) [place] [address] [id number] 16:24:00 Test Item Value Reference Range Comments ACTIVATED CLOTTING TIME 610 sec TESTED AT [address] (BEAKER) (test chak=489) [place] [address] [id number] 16:24:00 Test Item Value Reference Range Comments ACTIVATED CLOTTING TIME 433 sec TESTED AT [place] [address] [facility] (BEAK[facility]) (test xsez=457) [place] [address] [id number] 16:24:00 Test Item Value Reference Range Comments ACTIVATED CLOTTING TIME 543 sec TESTED AT [address] (BEAKER) (test dves=837) [place] [address] [id number] 16:24:00 Test Item Value Reference Range Comments ACTIVATED CLOTTING TIME 472 sec TESTED AT [address] (BEAKER) (test yheh=901) [place] [address] [id number] 16:23:00 Test Item Value Reference Range Comments ACTIVATED CLOTTING TIME 610 sec TESTED AT [address] (BEAKER) (test wvct=627) [place] [address] [id number] 16:23:00 Test Item Value Reference Range Comments ACTIVATED CLOTTING TIME 549 sec TESTED AT [address] (BEAKER) (test gdbc=627) [place] [address] [id number] 16:23:00 Test Item Value Reference Range Comments ACTIVATED CLOTTING TIME 147 sec TESTED AT [place] [address] [facility] (BEAKER) (test arbk=447) [place] [address] [id number] 15:37:00 Test Item Value Reference Range Comments [facility] (test nhco=717) 272 mg/dl 225-434 [id number] 15:37:00 Test Item Value Reference Range Comments PARTIAL [facility]LASTIN TIME [facility] (test 41.1 seconds 22.5-36.0 vefo=194) PROTHROMBIN TIME/[id number] 15:36:00 Test Item Value Reference Range Comments PROTIME (BEAKER) (test vfks=508) 19.9 seconds 11.7-14.7 INR (BEAKER) (test dowx=623) 1.7 <=5.9 RECOMMENDED COUMADIN/WARFARIN INR THERAPY RANGESSTANDARD DOSE: 2.0 - 3.0 Includes: PROPHYLAXIS forvenous thrombosis, systemic embolization; TREATMENT for venous thrombosis and/or pulmonary embolus.HIGH RISK: Target INR is 2.5-3.5 for patients with mechanical heart valves.CBC W/PLT COUNT & AUTO [id number] 15:28:00 Test Item Value Reference Range Comments WHITE BLOOD CELL COUNT (BEAKER) (test wolf=885) 22.1 K/ L 3.5-10.5 RED BLOOD CELL COUNT (BEAKER) (test ppsa=119) 2.76 M/ L 4.63-6.08 HEMOGLOBIN (BEAKER) (test vinc=954) 8.4 GM/DL 13.7-17.5 HEMATOCRIT (BEAKER) (test nwnr=986) 24.7 % 40.1-51.0 MEAN CORPUSCULAR VOLUME (BEAKER) (test vccr=092) 89.5 fL 79.0-92.2 MEAN CORPUSCULAR HEMOGLOBIN (BEAKER) (test 30.4 pg 25.7-32.2 ciym=956) MEAN CORPUSCULAR HEMOGLOBIN CONC (BEAKER) (test 34.0 GM/DL 32.3-36.5 ubnc=216) RED CELL DISTRIBUTION WIDTH (BEAKER) (test 12.7 % 11.6-14.4 twho=455) PLATELET COUNT (BEAKER) (test gtoo=030) 119 K/CU MM 150-450 MEAN PLATELET VOLUME (BEAKER) (test yqlc=568) 9.0 fL 9.4-12.4 NUCLEATED RED BLOOD CELLS (BEAKER) (test 0 /100 WBC 0-0 jkkl=558) NEUTROPHILS RELATIVE PERCENT (BEAKER) (test 76 % wile=450) LYMPHOCYTES RELATIVE PERCENT (BEAKER) (test 16 % vbfl=975) MONOCYTES RELATIVE PERCENT (BEAKER) (test 7 % eodg=256) EOSINOPHILS RELATIVE PERCENT (BEAKER) (test 0 % ajzj=953) BASOPHILS RELATIVE PERCENT (BEAKER) (test 0 % reqa=347) NEUTROPHILS ABSOLUTE COUNT (BEAKER) (test 16.81 K/ L 1.78-5.38 eoiw=784) LYMPHOCYTES ABSOLUTE COUNT (BEAKER) (test 3.44 K/ L 1.32-3.57 brbc=896) MONOCYTES ABSOLUTE COUNT (BEAKER) (test 1.54 K/ L 0.30-0.82 qero=675) EOSINOPHILS ABSOLUTE COUNT (BEAKER) (test 0.03 K/ L 0.04-0.54 tjdw=817) BASOPHILS ABSOLUTE COUNT (BEAKER) (test 0.05 K/ L 0.01-0.08 wnya=270) IMMATURE GRANULOCYTES-RELATIVE PERCENT (BEAKER) 1 % 0-1 (test oqlk=4507) THROMBOELASTOGRAPH (TEG)2017-06-11 15:25:00 Test Item Value Reference Range Comments TEG ACTIVATED CLOTTING TIME (BEAKER) minutes 4.0-7.0 No clot detected. (test bkra=9166) TEG FIBRINOGEN ACTIVITY (BEAKER) (test degrees 61.0-73.0 No clot detected. fbzx=2308) TEG PLT. AGGREGATION (BEAKER) (test MM 55.0-65.0 No clot detected. papy=8933) [facility] ACTIVATED CLOTTING TIME (BEAKER) 7.0 minutes 4.0-7.0 (test slxx=5385) [facility] FIBRINOGEN ACTIVITY (BEAKER) (test 74.6 degrees 61.0-73.0 rfqr=5806) [facility] PLT. AGGREGATION (BEAKER) (test 53.9 MM 55.0-65.0 cxrp=1669) BLOOD GAS, [id number] 15:21:00 Test Item Value Reference Range Comments PH ARTERIAL (BEAKER) (test mpqa=170) 7.27 7.35-7.45 PCO2 ARTERIAL (BEAKER) (test kuru=259) 49 mmHg 35-45 PO2 ARTERIAL (BEAKER) (test fwrh=732) 301 mmHg 80-90 O2 SATURATION ARTERIAL (BEAKER) (test sbkc=711) 99.6 % 96.0-97.0 HCO3 ARTERIAL (BEAKER) (test nkjw=306) 22 mmol/L 21-29 BASE EXCESS ARTERIAL (BEAKER) (test zwnu=983) -4.8 mmol/L -2.0-3.0 PATIENT TEMPERATURE (BEAKER) (test zfrw=7957) 36.0 C FIO2 (BEAKER) (test hsev=1758) 97.0 % SODIUM NA-STAT [id number] 15:21:00 Test Item Value Reference Range Comments SODIUM (BEAKER) (test vxgx=826) 131 meq/L 135-148 GLUCOSE-STAT [id number] 15:21:00 Test Item Value Reference Range Comments GLUCOSE RANDOM (BEAKER) (test qwxs=571) 298 mg/dL 70-110 HGB/HCT (H&H) - STAT [id number] 15:21:00 Test Item Value Reference Range Comments HEMOGLOBIN (BEAKER) (test lddv=904) 8.6 g/dL 13.0-16.8 HEMATOCRIT (BEAKER) (test jjuf=530) 25.0 % 40.0-50.0 CALCIUM, [id number] 15:21:00 Test Item Value Reference Range Comments CALCIUM IONIZED (BEAKER) (test jykr=493) 1.06 mmol/L 1.12-1.27 PH, BLOOD (BEAKER) (test ssol=7532) 7.27 POTASSIUM-STAT [id number] 15:20:00 Test Item Value Reference Range Comments POTASSIUM (BEAKER) (test hlkc=848) 4.5 meq/L 3.6-5.5 BLOOD GAS, [id number] 14:14:00 Test Item Value Reference Range Comments PH ARTERIAL (BEAKER) (test aqeg=771) 7.41 7.35-7.45 PCO2 ARTERIAL (BEAKER) (test gdza=991) 38 mmHg 35-45 PO2 ARTERIAL (BEAKER) (test ecxj=704) 299 mmHg 80-90 O2 SATURATION ARTERIAL (BEAKER) (test brjz=010) 99.7 % 96.0-97.0 HCO3 ARTERIAL (BEAKER) (test mcgu=434) 24 mmol/L 21-29 BASE EXCESS ARTERIAL (BEAKER) (test hbmg=507) -1.0 mmol/L -2.0-3.0 PATIENT TEMPERATURE (BEAKER) (test iood=2211) 36.5 C FIO2 (BEAKER) (test vcag=5788) 75.0 % SODIUM NA-STAT [id number] 14:14:00 Test Item Value Reference Range Comments SODIUM (BEAKER) (test ylby=255) 128 meq/L 135-148 GLUCOSE-STAT [id number] 14:14:00 Test Item Value Reference Range Comments GLUCOSE RANDOM (BEAKER) (test nuus=195) 305 mg/dL 70-110 HGB/HCT (H&H) - STAT [id number] 14:14:00 Test Item Value Reference Range Comments HEMOGLOBIN (BEAKER) (test vxja=444) 7.4 g/dL 13.0-16.8 HEMATOCRIT (BEAKER) (test nzje=960) 22.0 % 40.0-50.0 POTASSIUM-STAT [id number] 14:14:00 Test Item Value Reference Range Comments POTASSIUM (BEAKER) (test dotf=416) 6.1 meq/L 3.6-5.5 SODIUM NA-STAT [id number] 13:42:00 Test Item Value Reference Range Comments SODIUM (BEAKER) (test shro=220) 129 meq/L 135-148 POTASSIUM-STAT [id number] 13:41:00 Test Item Value Reference Range Comments POTASSIUM (BEAKER) (test pgqg=198) 5.4 meq/L 3.6-5.5 BLOOD GAS, [id number] 13:41:00 Test Item Value Reference Range Comments PH ARTERIAL (BEAKER) (test xpxe=997) 7.37 7.35-7.45 PCO2 ARTERIAL (BEAKER) (test rfxh=015) 36 mmHg 35-45 PO2 ARTERIAL (BEAKER) (test etml=257) 326 mmHg 80-90 O2 SATURATION ARTERIAL (BEAKER) (test bpmz=482) 99.7 % 96.0-97.0 HCO3 ARTERIAL (BEAKER) (test stqs=351) 22 mmol/L 21-29 BASE EXCESS ARTERIAL (BEAKER) (test ysye=684) -4.4 mmol/L -2.0-3.0 PATIENT TEMPERATURE (BEAKER) (test zhvm=8268) 30.0 C FIO2 (BEAKER) (test wqiy=2585) 65.0 % GLUCOSE-STAT [id number] 13:41:00 Test Item Value Reference Range Comments GLUCOSE RANDOM (BEAKER) (test lihp=894) 297 mg/dL 70-110 HGB/HCT (H&H) - STAT [id number] 13:41:00 Test Item Value Reference Range Comments HEMOGLOBIN (BEAKER) (test kvil=416) 8.8 g/dL 13.0-16.8 HEMATOCRIT (BEAKER) (test ivtt=246) 26.0 % 40.0-50.0 BLOOD GAS, [id number] 13:10:00 Test Item Value Reference Range Comments PH ARTERIAL (BEAKER) (test gutw=162) 7.46 7.35-7.45 PCO2 ARTERIAL (BEAKER) (test ilbk=725) 31 mmHg 35-45 PO2 ARTERIAL (BEAKER) (test zegj=059) 335 mmHg 80-90 O2 SATURATION ARTERIAL (BEAKER) (test ryei=294) 99.8 % 96.0-97.0 HCO3 ARTERIAL (BEAKER) (test lafx=557) 23 mmol/L 21-29 BASE EXCESS ARTERIAL (BEAKER) (test cwrk=526) -2.2 mmol/L -2.0-3.0 PATIENT TEMPERATURE (BEAKER) (test ssep=1209) 29.3 C FIO2 (BEAKER) (test vsvc=3155) 70.0 % SODIUM NA-STAT [id number] 13:10:00 Test Item Value Reference Range Comments SODIUM (BEAKER) (test cydn=200) 128 meq/L 135-148 GLUCOSE-STAT [id number] 13:10:00 Test Item Value Reference Range Comments GLUCOSE RANDOM (BEAKER) (test bdvq=307) 298 mg/dL 70-110 HGB/HCT (H&H) - STAT [id number] 13:10:00 Test Item Value Reference Range Comments HEMOGLOBIN (BEAKER) (test krhs=485) 7.8 g/dL 13.0-16.8 HEMATOCRIT (BEAKER) (test gpgl=460) 23.0 % 40.0-50.0 POTASSIUM-STAT [id number] 13:08:00 Test Item Value Reference Range Comments POTASSIUM (BEAKER) (test cfvz=508) 5.3 meq/L 3.6-5.5 BLOOD GAS, [id number] 12:40:00 Test Item Value Reference Range Comments PH ARTERIAL (BEAKER) (test zole=360) 7.44 7.35-7.45 PCO2 ARTERIAL (BEAKER) (test ksak=402) 38 mmHg 35-45 PO2 ARTERIAL (BEAKER) (test mpfs=719) 308 mmHg 80-90 O2 SATURATION ARTERIAL (BEAKER) (test wvkv=538) 99.7 % 96.0-97.0 HCO3 ARTERIAL (BEAKER) (test biur=834) 27 mmol/L 21-29 BASE EXCESS ARTERIAL (BEAKER) (test lbwz=251) 1.2 mmol/L -2.0-3.0 PATIENT TEMPERATURE (BEAKER) (test ufpy=0384) 30.0 C FIO2 (BEAKER) (test sjep=9899) 65.0 % SODIUM NA-STAT [id number] 12:40:00 Test Item Value Reference Range Comments SODIUM (BEAKER) (test dgfj=836) 127 meq/L 135-148 POTASSIUM-STAT [id number] 12:40:00 Test Item Value Reference Range Comments POTASSIUM (BEAKER) (test ncmw=889) 5.6 meq/L 3.6-5.5 GLUCOSE-STAT [id number] 12:40:00 Test Item Value Reference Range Comments GLUCOSE RANDOM (BEAKER) (test sqtj=772) 324 mg/dL 70-110 HGB/HCT (H&H) - STAT [id number] 12:40:00 Test Item Value Reference Range Comments HEMOGLOBIN (BEAKER) (test mkrf=946) 9.4 g/dL 13.0-16.8 HEMATOCRIT (BEAKER) (test voxr=643) 28.0 % 40.0-50.0 BLOOD GAS, [id number] 12:00:00 Test Item Value Reference Range Comments PH ARTERIAL (BEAKER) (test wsem=855) 7.39 7.35-7.45 PCO2 ARTERIAL (BEAKER) (test fglz=924) 42 mmHg 35-45 PO2 ARTERIAL (BEAKER) (test aapm=294) 312 mmHg 80-90 O2 SATURATION ARTERIAL (BEAKER) (test jliv=859) 99.7 % 96.0-97.0 HCO3 ARTERIAL (BEAKER) (test flwa=358) 26 mmol/L 21-29 BASE EXCESS ARTERIAL (BEAKER) (test ihnf=794) -0.5 mmol/L -2.0-3.0 PATIENT TEMPERATURE (BEAKER) (test wlfv=3976) 31.0 C FIO2 (BEAKER) (test aqku=4844) 70.0 % SODIUM NA-STAT [id number] 12:00:00 Test Item Value Reference Range Comments SODIUM (BEAKER) (test cptc=315) 128 meq/L 135-148 GLUCOSE-STAT [id number] 12:00:00 Test Item Value Reference Range Comments GLUCOSE RANDOM (BEAKER) (test pdxe=035) 303 mg/dL 70-110 HGB/HCT (H&H) - STAT [id number] 12:00:00 Test Item Value Reference Range Comments HEMOGLOBIN (BEAKER) (test mrpr=734) 8.6 g/dL 13.0-16.8 HEMATOCRIT (BEAKER) (test kjsq=012) 25.0 % 40.0-50.0 POTASSIUM-STAT [id number] 11:59:00 Test Item Value Reference Range Comments POTASSIUM (BEAKER) (test antl=575) 4.7 meq/L 3.6-5.5 BLOOD GAS, [id number] 11:24:00 Test Item Value Reference Range Comments PH ARTERIAL (BEAKER) (test achf=368) 7.36 7.35-7.45 PCO2 ARTERIAL (BEAKER) (test tbbm=925) 41 mmHg 35-45 PO2 ARTERIAL (BEAKER) (test ovng=935) 326 mmHg 80-90 O2 SATURATION ARTERIAL (BEAKER) (test iipt=975) 99.7 % 96.0-97.0 HCO3 ARTERIAL (BEAKER) (test fegd=507) 23 mmol/L 21-29 BASE EXCESS ARTERIAL (BEAKER) (test dguc=826) -3.0 mmol/L -2.0-3.0 PATIENT TEMPERATURE (BEAKER) (test dgvd=0481) 36.0 C FIO2 (BEAKER) (test sgem=5726) 70.0 % SODIUM NA-STAT [id number] 11:24:00 Test Item Value Reference Range Comments SODIUM (BEAKER) (test zgas=995) 129 meq/L 135-148 GLUCOSE-STAT [id number] 11:24:00 Test Item Value Reference Range Comments GLUCOSE RANDOM (BEAKER) (test pyvv=502) 230 mg/dL 70-110 HGB/HCT (H&H) - STAT [id number] 11:24:00 Test Item Value Reference Range Comments HEMOGLOBIN (BEAKER) (test wfyn=266) 9.7 g/dL 13.0-16.8 HEMATOCRIT (BEAKER) (test pscz=976) 29.0 % 40.0-50.0 POTASSIUM-STAT [id number] 11:23:00 Test Item Value Reference Range Comments POTASSIUM (BEAKER) (test anat=524) 3.8 meq/L 3.6-5.5 PLATELET AGGREGATION: FUNCTION [id number] 09:25:00 Test Item Value Reference Range Comments WEAK ADP RESULT(BEAKER) (test 64 % 60-91 jtyr=7842) PLATELET FUNCTION SCREEN 60-100% indicates normal INTERP (BEAKER) (test platelet function kwpi=2963) [id number] (BEAKER) Jes Jeffrey MD (test bkcu=5942) (electronic signature) PLATELET COUNT AGG (BEAKER) 169 K/CU MM 150-450 (test qtmb=4384) PLATELET AGGREGATION: FUNCTION [id number] 09:24:00 Test Item Value Reference Range Comments WEAK ADP RESULT(BEAKER) (test 76 % 60-91 coah=8366) PLATELET FUNCTION SCREEN 60-100% indicates normal INTERP (BEAKER) (test platelet function bpaq=5566) [id number] (BEAKER) Jes Jeffrey MD (test ywkt=8406) (electronic signature) PLATELET COUNT AGG (BEAKER) 223 K/CU MM 150-450 (test dutf=5221) for patients on clopidogrel in past two weeksBLOOD GAS, [id number] 08:44 :00 Test Item Value Reference Range Comments PH ARTERIAL (BEAKER) (test flsg=614) 7.45 7.35-7.45 PCO2 ARTERIAL (BEAKER) (test houv=751) 36 mmHg 35-45 PO2 ARTERIAL (BEAKER) (test rdet=803) 205 mmHg 80-90 O2 SATURATION ARTERIAL (BEAKER) (test hmil=173) 99.5 % 96.0-97.0 HCO3 ARTERIAL (BEAKER) (test uqxz=760) 25 mmol/L 21-29 BASE EXCESS ARTERIAL (BEAKER) (test xrms=444) 1.3 mmol/L -2.0-3.0 PATIENT TEMPERATURE (BEAKER) (test olun=4786) 37.0 C FIO2 (BEAKER) (test zbnh=0888) 100.0 % SODIUM NA-STAT [id number] 08:44:00 Test Item Value Reference Range Comments SODIUM (BEAKER) (test ftou=965) 130 meq/L 135-148 POTASSIUM-STAT [id number] 08:44:00 Test Item Value Reference Range Comments POTASSIUM (BEAKER) (test bwty=809) 3.3 meq/L 3.6-5.5 GLUCOSE-STAT [id number] 08:44:00 Test Item Value Reference Range Comments GLUCOSE RANDOM (BEAKER) (test luho=893) 229 mg/dL 70-110 HGB/HCT (H&H) - STAT [id number] 08:44:00 Test Item Value Reference Range Comments HEMOGLOBIN (BEAKER) (test lxul=970) 12.7 g/dL 13.0-16.8 HEMATOCRIT (BEAKER) (test gilv=155) 37.0 % 40.0-50.0 BASIC METABOLIC [id number] 07:04:00 Test Item Value Reference Range Comments SODIUM (BEAKER) (test 134 meq/L 136-145 lfax=586) POTASSIUM (BEAKER) (test 3.5 meq/L 3.5-5.1 hsyv=316) CHLORIDE (BEAKER) (test 99 meq/L 98-107 fmsa=936) CO2 (BEAKER) (test 26 meq/L 22-29 zmlb=744) BLOOD UREA NITROGEN 11 mg/dL 7-21 (BEAKER) (test vmfk=697) CREATININE (BEAKER) (test 0.98 mg/dL 0.57-1.25 bfvc=920) GLUCOSE RANDOM (BEAKER) 245 mg/dL 70-105 (test upsj=717) CALCIUM (BEAKER) (test 8.7 mg/dL 8.4-10.2 xvff=973) EGFR (BEAKER) (test 78 mL/min/1.73 sq m ESTIMATED GFR IS NOT ssqx=3966) ACCURATE CREATININE CLEARANCE IN PREDICTING GLOMERULAR FILTRATION RATE. ESTIMATED GFR IS NOT APPLICABLE FOR DIALYSIS PATIENTS. POCT-GLUCOSE [id number] 05:18:00 Test Item Value Reference Range Comments POC-GLUCOSE METER (BEAKER) 211 mg/dL 70-110 TESTED AT [facility] [address] [facility] (test shlw=5664) [facility] [address] BASIC METABOLIC [id number] 05:16:00 Test Item Value Reference Range Comments SODIUM (BEAKER) (test 121 meq/L 136-145 yuzx=572) POTASSIUM (BEAKER) (test 3.7 meq/L 3.5-5.1 Specimen slightly xxsb=698) hemolyzed CHLORIDE (BEAKER) (test 92 meq/L 98-107 yhib=572) CO2 (BEAKER) (test 20 meq/L 22-29 uags=767) BLOOD UREA NITROGEN 10 mg/dL 7-21 (BEAKER) (test vcwl=554) CREATININE (BEAKER) (test 1.13 mg/dL 0.57-1.25 Specimen slightly qfhm=266) hemolyzed GLUCOSE RANDOM (BEAKER) 626 mg/dL 70-105 (test ylnv=505) CALCIUM (BEAKER) (test 7.6 mg/dL 8.4-10.2 ufga=814) EGFR (BEAKER) (test 66 mL/min/1.73 sq m ESTIMATED GFR IS NOT jqqa=7531) ACCURATE CREATININE CLEARANCE IN PREDICTING GLOMERULAR FILTRATION RATE. ESTIMATED GFR IS NOT APPLICABLE FOR DIALYSIS PATIENTS. [id number] 04:58:00 Test Item Value Reference Range Comments MAGNESIUM (BEAKER) (test 1.9 mg/dL 1.6-2.6 Specimen slightly hemolyzed cwfj=099) RAD, CHEST, 1 VIEW, NON [id number] 04:35:00Reason for exam:->IABP, chest painShould this be performed at the bedside?->YesFINAL REPORT RAD, CHEST, 1 VIEW, NON DEPT INDICATION: IABP, chest pain COMPARISON: Prior day's exam FINDINGS: Portable frontal view of the chest. IMPRESSION: Support Lines: Stable positioning of intra-aortic balloon pump marker appearing approximately 7 cm below the superior aortic arch border. Lungs and pleura: Subsegmental atelectasis at the left base. Otherwise, no focal airspace disease No pneumothorax.Heart and mediastinum: Stable contours. Additional findings: None. Signed: JR Glenn, Minerva Lagos Verified Date/Time: 06/11/2017 04:35:43 Reading Location: [address] Reading Room 04:35 AMCBC ( HEMOGRAM ONLY)2017-06-11 04:20:00 Test Item Value Reference Range Comments WHITE BLOOD CELL COUNT (BEAKER) (test pgym=904) 9.4 K/ L 3.5-10.5 RED BLOOD CELL COUNT (BEAKER) (test ghme=978) 3.80 M/ L 4.63-6.08 HEMOGLOBIN (BEAKER) (test kfsl=217) 11.6 GM/DL 13.7-17.5 HEMATOCRIT (BEAKER) (test pfwh=106) 33.2 % 40.1-51.0 MEAN CORPUSCULAR VOLUME (BEAKER) (test nmkm=068) 87.4 fL 79.0-92.2 MEAN CORPUSCULAR HEMOGLOBIN (BEAKER) (test 30.5 pg 25.7-32.2 rvvh=846) MEAN CORPUSCULAR HEMOGLOBIN CONC (BEAKER) (test 34.9 GM/DL 32.3-36.5 jqrf=643) RED CELL DISTRIBUTION WIDTH (BEAKER) (test 12.5 % 11.6-14.4 mchy=076) PLATELET COUNT (BEAKER) (test vyda=984) 166 K/CU MM 150-450 MEAN PLATELET VOLUME (BEAKER) (test bxmm=026) 9.3 fL 9.4-12.4 NUCLEATED RED BLOOD CELLS (BEAKER) (test 0 /100 WBC 0-0 rhrx=641) [id number] 02:34:00 Test Item Value Reference Range Comments PROTIME (BEAKER) (test heuo=456) 14.4 seconds 11.7-14.7 INR (BEAKER) (test qtcl=112) 1.1 <=5.9 PARTIAL THROMBOPLASTIN TIME (BEAKER) (test 53.6 seconds 22.5-36.0 xbzr=040) RECOMMENDED COUMADIN/WARFARIN INR THERAPY RANGESSTANDARD DOSE: 2.0 - 3.0 Includes: PROPHYLAXIS forvenous thrombosis, systemic embolization; TREATMENT for venous thrombosis and/or pulmonary embolus.HIGH RISK: Target INR is 2.5-3.5 for patients with mechanical heart valves.POCT-GLUCOSE [id number] 22:33:00 Test Item Value Reference Range Comments POC-GLUCOSE METER (BEAKER) 206 mg/dL 70-110 TESTED AT [address] (test xsdu=7196) [place] [id number] 19:49:00 Test Item Value Reference Range Comments PARTIAL THROMBOPLASTIN TIME (BEAKER) (test 48.7 seconds 22.5-36.0 drrx=889) POCT-GLUCOSE [id number] 18:54:00 Test Item Value Reference Range Comments POC-GLUCOSE METER (BEAKER) 211 mg/dL 70-110 TESTED AT [address] (test acas=2844) [place] [address] POCT-GLUCOSE [id number] 13:12:00 Test Item Value Reference Range Comments POC-GLUCOSE METER (BEAKER) 232 mg/dL 70-110 TESTED AT [address] (test pybn=1776) [place] [address] [id number] 12:51:00 Test Item Value Reference Range Comments SODIUM (BEAKER) (test bexo=842) 132 meq/L 136-145 [id number] 12:31:00 Test Item Value Reference Range Comments PARTIAL THROMBOPLASTIN TIME (BEAKER) (test 37.0 seconds 22.5-36.0 nmlu=763) RAD, CHEST, 1 VIEW, NON [id number] 08:19:00Reason for exam:->IABPShould this be performed at the bedside?->YesFINAL REPORT AP chest HISTORY: Balloon pump COMPARISON: 06/09/2017 IMPRESSION:Intra-aortic balloon pump marker projects at the level of the lina. Cardiac silhouette unchanged. Mild interstitial prominence. No focal infiltrate. No pneumothorax. Signed: Lou Camara MDReport Verified Date/Time: 06/10/2017 08:19:51 Reading Location: [address] Ortho Consult Reading Room TROPONIN [id number] 05:23:00 Test Item Value Reference Range Comments TROPONIN I (BEAKER) (test afsw=280) 6.44 ng/mL 0.00-0.03 Troponin I (TnI) levels must be interpreted in the context of the presenting symptoms and the clinical findings. Elevated TnI levels indicate myocardial damage, but are not specific for ischemic heart disease. Elevated TnI levels are seen in patients with other cardiac conditions (including myocarditis and congestive heart failure), and slight TnI elevations occur in patients with other conditions, including sepsis, renal failure, acidosis, acute neurological disease, and persistent tachyarrhythmia.POCT-GLUCOSE [id number] 05:19:00 Test Item Value Reference Range Comments POC-GLUCOSE METER (BEAKER) 258 mg/dL 70-110 TESTED AT [facility] [address] [facility] (test sxrg=4139) [facility] [address] BASIC METABOLIC [id number] 05:11:00 Test Item Value Reference Range Comments SODIUM (BEAKER) (test 127 meq/L 136-145 lqfy=866) POTASSIUM (BEAKER) (test 3.7 meq/L 3.5-5.1 gtuv=420) CHLORIDE (BEAKER) (test 99 meq/L 98-107 owqw=787) CO2 (BEAKER) (test 20 meq/L 22-29 upyk=179) BLOOD UREA NITROGEN 10 mg/dL 7-21 (BEAKER) (test wnkc=579) CREATININE (BEAKER) (test 0.84 mg/dL 0.57-1.25 tqys=352) GLUCOSE RANDOM (BEAKER) 399 mg/dL 70-105 (test dxzn=919) CALCIUM (BEAKER) (test 7.9 mg/dL 8.4-10.2 pmuu=173) EGFR (BEAKER) (test 93 mL/min/1.73 sq m ESTIMATED GFR IS NOT odel=7347) ACCURATE CREATININE CLEARANCE IN PREDICTING GLOMERULAR FILTRATION RATE. ESTIMATED GFR IS NOT APPLICABLE FOR DIALYSIS PATIENTS. CREATINE KINASE (CK), TOTAL AND [id number] 05:03:00 Test Item Value Reference Range Comments CREATINE KINASE TOTAL (BEAKER) (test kser=427) 244 U/L 29-200 CREATINE KINASE-MB (BEAKER) (test fxel=863) 4.4 ng/mL 0.0-6.6 CREATINE KINASE-MB INDEX (BEAKER) (test pjet=107) 1.8 % CK-MB Reference Range:<6.7 Normal6.7-10.0 Borderline>10.0 [id number] 04:55:00 Test Item Value Reference Range Comments MAGNESIUM (BEAKER) (test tzbk=341) 1.6 mg/dL 1.6-2.6 [id number] 04:38:00 Test Item Value Reference Range Comments PARTIAL THROMBOPLASTIN TIME (BEAKER) (test 57.5 seconds 22.5-36.0 ujqa=822) PROTHROMBIN TIME/[id number] 04:36:00 Test Item Value Reference Range Comments PROTIME (BEAKER) (test asjx=740) 15.5 seconds 11.7-14.7 INR (BEAKER) (test lovf=466) 1.2 <=5.9 RECOMMENDED COUMADIN/WARFARIN INR THERAPY RANGESSTANDARD DOSE: 2.0 - 3.0 Includes: PROPHYLAXIS forvenous thrombosis, systemic embolization; TREATMENT for venous thrombosis and/or pulmonary embolus.HIGH RISK: Target INR is 2.5-3.5 for patients with mechanical heart valves.CBC (HEMOGRAM ONLY)[id number] 04:22:00 Test Item Value Reference Range Comments WHITE BLOOD CELL COUNT (BEAKER) (test bcbe=625) 10.3 K/ L 3.5-10.5 RED BLOOD CELL COUNT (BEAKER) (test ryes=720) 4.06 M/ L 4.63-6.08 HEMOGLOBIN (BEAKER) (test hqkg=658) 12.2 GM/DL 13.7-17.5 HEMATOCRIT (BEAKER) (test tdba=570) 35.5 % 40.1-51.0 MEAN CORPUSCULAR VOLUME (BEAKER) (test xika=863) 87.4 fL 79.0-92.2 MEAN CORPUSCULAR HEMOGLOBIN (BEAKER) (test 30.0 pg 25.7-32.2 zjre=584) MEAN CORPUSCULAR HEMOGLOBIN CONC (BEAKER) (test 34.4 GM/DL 32.3-36.5 boco=880) RED CELL DISTRIBUTION WIDTH (BEAKER) (test 12.4 % 11.6-14.4 iqla=170) PLATELET COUNT (BEAKER) (test lznq=843) 199 K/CU MM 150-450 MEAN PLATELET VOLUME (BEAKER) (test snkl=011) 9.1 fL 9.4-12.4 NUCLEATED RED BLOOD CELLS (BEAKER) (test 0 /100 WBC 0-0 mfad=251) URINALYSIS W/ [id number] 03:44:00 Test Item Value Reference Range Comments COLOR (BEAKER) (test qeuh=663) Yellow CLARITY (BEAKER) (test bjjj=914) Clear SPECIFIC GRAVITY UA (BEAKER) (test vljt=920) 1.020 1.001-1.035 PH UA (BEAKER) (test unfq=886) 6.0 5.0-8.0 PROTEIN UA (BEAKER) (test gmtn=067) 10 mg/dL Negative GLUCOSE UA (BEAKER) (test hycf=256) 500 mg/dL Negative KETONES UA (BEAKER) (test pkjp=264) Trace Negative BILIRUBIN UA (BEAKER) (test kbnm=319) Negative Negative BLOOD UA (BEAKER) (test ngbm=991) Negative Negative NITRITE UA (BEAKER) (test hmxo=136) Negative Negative LEUKOCYTE ESTERASE UA (BEAKER) (test yefm=486) Negative Negative UROBILINOGEN UA (BEAKER) (test rmsf=088) 0.2 mg/dL 0.2-1.0 RBC UA (BEAKER) (test xqdv=141) 1 /HPF WBC UA (BEAKER) (test dnpu=611) 1 /HPF MUCUS (BEAKER) (test yxdd=9046) Occasional SQUAMOUS EPITHELIAL (BEAKER) (test eljm=341) 1 /HPF HYALINE CASTS (BEAKER) (test xnjj=735) 2 /LPF SOURCE(BEAKER) (test ngop=4948) Urine, Voided POCT-GLUCOSE [id number] 22:25:00 Test Item Value Reference Range Comments POC-GLUCOSE METER (BEAKER) 205 mg/dL 70-110 TESTED AT [address] (test wfto=4585) [facility] [address] [id number] 21:50:00 Test Item Value Reference Range Comments PARTIAL THROMBOPLASTIN TIME (BEAKER) (test 38.6 seconds 22.5-36.0 uqil=586) PROTHROMBIN TIME/[id number] 21:49:00 Test Item Value Reference Range Comments PROTIME (BEAKER) (test svuw=316) 14.0 seconds 11.7-14.7 INR (BEAKER) (test xajp=327) 1.1 <=5.9 RECOMMENDED COUMADIN/WARFARIN INR THERAPY RANGESSTANDARD DOSE: 2.0 - 3.0 Includes: PROPHYLAXIS forvenous thrombosis, systemic embolization; TREATMENT for venous thrombosis and/or pulmonary embolus.HIGH RISK: Target INR is 2.5-3.5 for patients with mechanical heart valves.TROPONIN [id number] 21:36:00 Test Item Value Reference Range Comments TROPONIN I (BEAKER) (test pstm=962) 11.62 ng/mL 0.00-0.03 Troponin I (TnI) levels must be interpreted in the context of the presenting symptoms and the clinical findings. Elevated TnI levels indicate myocardial damage, but are not specific for ischemic heart disease. Elevated TnI levels are seen in patients with other cardiac conditions (including myocarditis and congestive heart failure), and slight TnI elevations occur in patients with other conditions, including sepsis, renal failure, acidosis, acute neurological disease, and persistent tachyarrhythmia.CREATINE KINASE (CK), TOTAL AND [id number] 21:29:00 Test Item Value Reference Range Comments CREATINE KINASE TOTAL (BEAKER) (test ksxr=051) 367 U/L 29-200 CREATINE KINASE-MB (BEAKER) (test jhxv=122) 9.5 ng/mL 0.0-6.6 CREATINE KINASE-MB INDEX (BEAKER) (test toie=738) 2.6 % CK-MB Reference Range:<6.7 Normal6.7-10.0 Borderline>10.0 AbnormalPOCT-GLUCOSE [id number] 18:41:00 Test Item Value Reference Range Comments POC-GLUCOSE METER (BEAKER) 211 mg/dL 70-110 TESTED AT [facility] [address] [facility] (test sisx=2857) [facility] [address] TROPONIN [id number] 17:38:00 Test Item Value Reference Range Comments TROPONIN I (BEAKER) (test pchx=008) 14.47 ng/mL 0.00-0.03 Troponin I (TnI) levels must be interpreted in the context of the presenting symptoms and the clinical findings. Elevated TnI levels indicate myocardial damage, but are not specific for ischemic heart disease. Elevated TnI levels are seen in patients with other cardiac conditions (including myocarditis and congestive heart failure), and slight TnI elevations occur in patients with other conditions, including sepsis, renal failure, acidosis, acute neurological disease, and persistent tachyarrhythmia.CREATINE KINASE (CK), TOTAL AND [id number] 17:30:00 Test Item Value Reference Range Comments CREATINE KINASE TOTAL (BEAKER) (test tfdh=386) 462 U/L 29-200 CREATINE KINASE-MB (BEAKER) (test zzdf=413) 14.4 ng/mL 0.0-6.6 CREATINE KINASE-MB INDEX (BEAKER) (test kkro=337) 3.1 % CK-MB Reference Range:<6.7 Normal6.7-10.0 Borderline>10.0 [id number] 14:28:00 Test Item Value Reference Range Comments PARTIAL THROMBOPLASTIN TIME (BEAKER) (test 109.4 seconds 22.5-36.0 chyq=570) POCT-GLUCOSE [id number] 13:44:00 Test Item Value Reference Range Comments POC-GLUCOSE METER (BEAKER) 237 mg/dL 70-110 TESTED AT [facility] [address] [facility] (test lzds=3436) [facility] [address] [id number] 12:35:00 Test Item Value Reference Range Comments PARTIAL THROMBOPLASTIN TIME (BEAKER) (test > seconds 22.5-36.0 uely=804) HEMOGLOBIN [id number] 11:50:00 Test Item Value Reference Range Comments HEMOGLOBIN A1C (BEAKER) (test yfxf=643) 8.9 % 4.3-6.1 TROPONIN [id number] 10:04:00 Test Item Value Reference Range Comments TROPONIN I (BEAKER) (test faey=238) 9.42 ng/mL 0.00-0.03 Troponin I (TnI) levels must be interpreted in the context of the presenting symptoms and the clinical findings. Elevated TnI levels indicate myocardial damage, but are not specific for ischemic heart disease. Elevated TnI levels are seen in patients with other cardiac conditions (including myocarditis and congestive heart failure), and slight TnI elevations occur in patients with other conditions, including sepsis, renal failure, acidosis, acute neurological disease, and persistent tachyarrhythmia.CREATINE KINASE (CK), TOTAL AND [id number] 09:52:00 Test Item Value Reference Range Comments CREATINE KINASE TOTAL (BEAKER) (test enfa=028) 557 U/L 29-200 CREATINE KINASE-MB (BEAKER) (test zsif=896) 21.2 ng/mL 0.0-6.6 CREATINE KINASE-MB INDEX (BEAKER) (test zvxu=655) 3.8 % CK-MB Reference Range:<6.7 Normal6.7-10.0 Borderline>10.0 AbnormalB-TYPE NATRIURETIC FACTOR (BNP)2017-06-09 09:47:00 Test Item Value Reference Range Comments B-TYPE NATRIURETIC PEPTIDE (BEAKER) (test 332 pg/mL 0-100 cfku=522) [id number] 09:46:00 Test Item Value Reference Range Comments PHOSPHORUS (BEAKER) (test ivev=904) 3.2 mg/dL 2.3-4.7 [id number] 09:46:00 Test Item Value Reference Range Comments MAGNESIUM (BEAKER) (test znwi=947) 1.9 mg/dL 1.6-2.6 COMPREHENSIVE METABOLIC [id number] 09:46:00 Test Item Value Reference Range Comments TOTAL PROTEIN (BEAKER) 6.9 gm/dL 6.0-8.3 (test rsjx=597) ALBUMIN (BEAKER) (test 3.7 g/dL 3.5-5.0 ksff=7211) ALKALINE PHOSPHATASE 70 U/L 40-150 (BEAKER) (test hecf=995) BILIRUBIN TOTAL (BEAKER) 0.5 mg/dL 0.2-1.2 (test msbj=099) SODIUM (BEAKER) (test 136 meq/L 136-145 rbrc=993) POTASSIUM (BEAKER) (test 4.0 meq/L 3.5-5.1 ahtt=303) CHLORIDE (BEAKER) (test 106 meq/L 98-107 xank=930) CO2 (BEAKER) (test 20 meq/L 22-29 ueot=364) BLOOD UREA NITROGEN 8 mg/dL 7-21 (BEAKER) (test afdq=365) CREATININE (BEAKER) (test 0.82 mg/dL 0.57-1.25 scoy=154) GLUCOSE RANDOM (BEAKER) 266 mg/dL 70-105 (test sckl=524) CALCIUM (BEAKER) (test 8.6 mg/dL 8.4-10.2 bgif=915) AST (SGOT) (BEAKER) (test 50 U/L 5-34 ocjh=524) ALT (SGPT) (BEAKER) (test 29 U/L 6-55 kdak=799) EGFR (BEAKER) (test 96 mL/min/1.73 sq m ESTIMATED GFR IS NOT wils=1780) ACCURATE CREATININE CLEARANCE IN PREDICTING GLOMERULAR FILTRATION RATE. ESTIMATED GFR IS NOT APPLICABLE FOR DIALYSIS PATIENTS. LIPID [id number] 09:46:00 Test Item Value Reference Range Comments TRIGLYCERIDES (BEAKER) (test djgf=454) 234 mg/dL CHOLESTEROL (BEAKER) (test zpuy=211) 202 mg/dL HDL CHOLESTEROL (BEAKER) (test jjrt=906) 37 mg/dL LDL CHOLESTEROL CALCULATED (BEAKER) (test 118 mg/dL aeyk=593) Triglyceride Reference Range: Low Risk <150 Borderline 150- 199 High Risk 200-499 Very High Risk >=500Cholesterol Reference Range: Low Risk <200 Borderline 200-239 High Risk > 240HDL Cholesterol Reference Range: Low Risk >=60 High Risk <40LDL Cholesterol Reference Range: Optimal <100 Near Optimal 100-129 Borderline 130-159 High 160-189 Very High >=190CBC W/PLT COUNT & AUTO [id number] 09:21:00 Test Item Value Reference Range Comments WHITE BLOOD CELL COUNT (BEAKER) (test hmua=972) 9.4 K/ L 3.5-10.5 RED BLOOD CELL COUNT (BEAKER) (test ectu=785) 4.45 M/ L 4.63-6.08 HEMOGLOBIN (BEAKER) (test ovcf=121) 13.4 GM/DL 13.7-17.5 HEMATOCRIT (BEAKER) (test utqn=646) 38.7 % 40.1-51.0 MEAN CORPUSCULAR VOLUME (BEAKER) (test dygt=204) 87.0 fL 79.0-92.2 MEAN CORPUSCULAR HEMOGLOBIN (BEAKER) (test 30.1 pg 25.7-32.2 ytkk=621) MEAN CORPUSCULAR HEMOGLOBIN CONC (BEAKER) (test 34.6 GM/DL 32.3-36.5 vwaq=350) RED CELL DISTRIBUTION WIDTH (BEAKER) (test 12.9 % 11.6-14.4 xexx=349) PLATELET COUNT (BEAKER) (test ceen=284) 228 K/CU MM 150-450 MEAN PLATELET VOLUME (BEAKER) (test prms=071) 9.0 fL 9.4-12.4 NUCLEATED RED BLOOD CELLS (BEAKER) (test 0 /100 WBC 0-0 axjf=285) NEUTROPHILS RELATIVE PERCENT (BEAKER) (test 64 % yzzg=972) LYMPHOCYTES RELATIVE PERCENT (BEAKER) (test 28 % uwec=664) MONOCYTES RELATIVE PERCENT (BEAKER) (test 7 % hctw=907) EOSINOPHILS RELATIVE PERCENT (BEAKER) (test 1 % joay=400) BASOPHILS RELATIVE PERCENT (BEAKER) (test 1 % hygu=810) NEUTROPHILS ABSOLUTE COUNT (BEAKER) (test 5.97 K/ L 1.78-5.38 vokm=502) LYMPHOCYTES ABSOLUTE COUNT (BEAKER) (test 2.59 K/ L 1.32-3.57 gjvv=360) MONOCYTES ABSOLUTE COUNT (BEAKER) (test 0.64 K/ L 0.30-0.82 aoew=119) EOSINOPHILS ABSOLUTE COUNT (BEAKER) (test 0.08 K/ L 0.04-0.54 cavu=596) BASOPHILS ABSOLUTE COUNT (BEAKER) (test 0.05 K/ L 0.01-0.08 ijyk=530) IMMATURE GRANULOCYTES-RELATIVE PERCENT (BEAKER) 0 % 0-1 (test wbii=0227) RAD, CHEST, 1 VIEW, NON [id number] 08:59:00Reason for exam:->NSTEMI, pleuritic chest painShould this be performed at the bedside?->YesFINAL REPORT TECHNIQUE: Frontal view of the chest. INDICATION: 61-year-old man with NSTEMI and pleuritic chest pain. COMPARISON: None. FINDINGS: LINES/TUBES: None. LUNGS: The lungs are well inflated and clear. PLEURA: No pneumothorax or significant pleural effusion. HEART AND MEDIASTINUM: The cardiomediastinal silhouette appears mildly enlarged, which may be secondary to magnification from AP and slightly lordotic technique. SOFT TISSUES AND BONES: Unremarkable. IMPRESSION:No acute cardiopulmonary abnormalities. Signed: Mary Ann Chong MDReport Verified Date/Time: 06/09/2017 08:59:29 Reading Location: [facility] C013Y CT Body Reading Room
[2019-02-04 22:20] LABS: Absolute Lymphocytes (CBC) 3.4 K/uL (0.7-4.9); Basophils % 0.5 % (0-1.3); Eosinophils % 0.4 % (0-4.4); Hematocrit 46.5 % (39.6-49.0); Lymphocytes % 27.8 % (15.3-44.8); MPV 6.9 fL (7.6-11.3); Monocytes % 6.3 % (3.3-12.3); RBC Red Blood Cell Count 5.22 M/uL (4.33-5.43)
[2019-02-04 22:22] LABS: Protime INR 0.9
[2019-02-04 22:33] LABS: ALT/SGPT 31 U/L (12-78); AST/SGOT 19 U/L (15-37); Albumin 3.9 g/dL (3.4-5.0); Alkaline Phosphatase 89 U/L (45-117); BUN Blood Urea Nitrogen 8 mg/dL (7-18); Bicarbonate 23 mmol/L (21-32); Bilirubin Direct < 0.1 mg/dL (0-0.2); Bilirubin Total 0.4 mg/dL (0.2-1.0); Glucose Level 189 mg/dL (74-106); Magnesium 1.8 mg/dL (1.8-2.4); NT PRO-BNP 187 pg/mL (<125); Potassium 3.6 mmol/L (3.5-5.1); Protein, Total 7.5 g/dL (6.4-8.2); Sodium Level 137 mmol/L (136-145); Troponin (Emerg Dept Use Only) 0.02 ng/mL (0.0-0.045)
--- NOTE | 2019-02-04 22:50 | EDPHYS ---
Physician Documentation [facility] Name: Dexter Griffith Age: 63 yrs Sex: Male : 1955 Arrival Date: 02/04/2019 Time: 21:09 Bed 6 Private MD: ED Physician Art Benavides HPI: 02/04 22:46 This 63 yrs old Male presents to ER via Ambulatory with complaints of Doesn't jean carlos Feel Right, hard to catch breath. 22:46 The patient has shortness of breath with light activity. Onset: The symptoms/episode jean carlos began/occurred 1 day(s) ago. Duration: The symptoms are continuous, but are steadily getting better. The patient's shortness of breath is aggravated by exertion, is alleviated by rest, application of supplemental oxygen. The patient or guardian reports chest pain that is located primarily in the substernal area, anterior chest wall. Onset: yesterday. The pain does not radiate. Associated signs and symptoms: Pertinent positives: chest pain. Severity of symptoms: At their worst the symptoms were mild in the emergency department the symptoms are unchanged. The chest pain is described as a pressure. Historical: - Allergies: 21:15 No Known Allergies; aa1 - Home Meds: 21:15 atorvastatin Oral [Active]; Levemir 100 unit/mL subcutaneous soln [Active]; Metformin aa1 Oral [Active]; metoprolol [Active]; - PMHx: 21:15 Deaf Left Ear; Diabetes - NIDDM; High Cholesterol; aa1 - PSHx: 21:15 Heart stents; aa1 - Immunization history:: Adult Immunizations unknown. - Social history:: Smoking status: Patient uses tobacco products, denies chronic smoking, but will smoke occasionally. - Ebola Screening: : No symptoms or risks identified at this time. - Family history:: not pertinent. ROS: 22:46 Constitutional: Negative for fever, chills, and weight loss, Eyes: Negative for injury, jean carlos pain, redness, and discharge, ENT: Negative for injury, pain, and discharge, Neck: Negative for injury, pain, and swelling, Abdomen/GI: Negative for abdominal pain, nausea, vomiting, diarrhea, and constipation, Back: Negative for injury and pain, : Negative for injury, bleeding, discharge, and swelling, MS/Extremity: Negative for injury and deformity, Skin: Negative for injury, rash, and discoloration, Neuro: Negative for headache, weakness, numbness, tingling, and seizure, Psych: Negative for depression, anxiety, suicide ideation, homicidal ideation, and hallucinations, Allergy/Immunology: Negative for hives, rash, and allergies, Endocrine: Negative for neck swelling, polydipsia, polyuria, polyphagia, and marked weight changes, Hematologic/Lymphatic: Negative for swollen nodes, abnormal bleeding, and unusual bruising. 22:46 Cardiovascular: Positive for chest pain, with cough. 22:46 Respiratory: Positive for cough, shortness of breath, on exertion. Exam: 22:46 Constitutional: This is a well developed, well nourished patient who is awake, alert, jean carlos and in no acute distress. Head/Face: Normocephalic, atraumatic. Eyes: Pupils equal round and reactive to light, extra-ocular motions intact. Lids and lashes normal. Conjunctiva and sclera are non-icteric and not injected. Cornea within normal limits. Periorbital areas with no swelling, redness, or edema. ENT: Nares patent. No nasal discharge, no septal abnormalities noted. Tympanic membranes are normal and external auditory canals are clear. Oropharynx with no redness, swelling, or masses, exudates, or evidence of obstruction, uvula midline. Mucous membranes moist. Neck: Trachea midline, no thyromegaly or masses palpated, and no cervical lymphadenopathy. Supple, full range of motion without nuchal rigidity, or vertebral point tenderness. No Meningismus. Chest/axilla: Normal chest wall appearance and motion. Nontender with no deformity. No lesions are appreciated. Cardiovascular: Regular rate and rhythm with a normal S1 and S2. No gallops, murmurs, or rubs. Normal PMI, no JVD. No pulse deficits. Respiratory: Lungs have equal breath sounds bilaterally, clear to auscultation and percussion. No rales, rhonchi or wheezes noted. No increased work of breathing, no retractions or nasal flaring. Abdomen/GI: Soft, non-tender, with normal bowel sounds. No distension or tympany. No guarding or rebound. No evidence of tenderness throughout. Back: No spinal tenderness. No costovertebral tenderness. Full range of motion. Male : Normal genitalia with no discharge or lesions. Skin: Warm, dry with normal turgor. Normal color with no rashes, no lesions, and no evidence of cellulitis. MS/ Extremity: Pulses equal, no cyanosis. Neurovascular intact. Full, normal range of motion. Neuro: Awake and alert, GCS 15, oriented to person, place, time, and situation. Cranial nerves II-XII grossly intact. Motor strength 5/5 in all extremities. Sensory grossly intact. Cerebellar exam normal. Normal gait. Psych: Awake, alert, with orientation to person, place and time. Behavior, mood, and affect are within normal limits. 22:46 Musculoskeletal/extremity: DVT Exam: No signs of deep vein thrombosis. no pain, no swelling, no tenderness, negative Homans' sign noted on exam, no appreciated bluish discoloration, no erythema, no increased warmth. Vital Signs: 21:15 BP 177 / 80; Pulse 103; Resp 18; Temp 97.4; Pulse Ox 99% on R/A; Weight 90.72 kg (R); aa1 Height 5 ft. 9 in. (175.26 cm) (R); Pain 7/10; 22:30 BP 165 / 83; Pulse 83; Resp 17; Pulse Ox 96% on R/A; Pain 5/10; tl1 23:30 BP 124 / 70; Pulse 70; Resp 17; Pulse Ox 98% on R/A; Pain 0/10; 1 02/05 00:20 BP 128 / 68; Pulse 68; Resp 16; Pulse Ox 99% on R/A; Pain 0/10; 1 02/04 21:15 Body Mass Index 29.53 (90.72 kg, 175.26 cm) aa MDM: 02/04 21:52 Patient medically screened. [facility] 22:48 Data reviewed: vital signs, nurses notes, lab test result(s), EKG, radiologic studies, jean carlos plain films. 02/04 21:29 Order name: Basic Metabolic Panel [facility] 02/04 21:29 Order name: CBC with Diff [facility] 02/04 21:29 Order name: LFT's; Complete Time: 22:39 [facility] 02/04 21:29 Order name: Magnesium; Complete Time: 22:39 [facility] 02/04 21:29 Order name: NT PRO-BNP; Complete Time: 22:39 [facility] 02/04 21:29 Order name: PT-INR; Complete Time: 22:39 tl2 02/04 21:29 Order name: Troponin (emerg Dept Use Only); Complete Time: 22:39 tl2 02/04 21:29 Order name: XRAY Chest (1 view) 2 02/04 21:29 Order name: Basic Metabolic Panel; Complete Time: 22:39 EDMS 02/04 21:29 Order name: CBC with Automated Diff; Complete Time: 22:39 EDMS 02/04 21:53 Order name: D-Dimer [facility] 02/04 22:18 Order name: D-Dimer; Complete Time: 22:39 EDMS 02/04 23:57 Order name: Echo with Doppler [facility] 02/04 21:29 Order name: EKG; Complete Time: 21:30 tl2 02/04 21:29 Order name: Cardiac monitoring; Complete Time: 21:29 tl2 02/04 21:29 Order name: EKG - Nurse/Tech; Complete Time: 21:29 tl2 02/04 21:29 Order name: IV Saline Lock; Complete Time: 21:54 tl2 02/04 21:29 Order name: Labs collected and sent; Complete Time: 21:54 tl2 02/04 21:29 Order name: O2 Per Protocol; Complete Time: 21:29 tl2 02/04 21:29 Order name: O2 Sat Monitoring; Complete Time: 21:29 tl2 02/04 23:57 Order name: CONS Physician Consult [facility] 02/04 23:57 Order name: Heart Healthy [facility] 02/04 23:57 Order name: EKG Electrocardiogram [facility] Administered Medications: 23:23 Drug: Aspirin 162 mg Route: PO; 2 02/05 00:22 Follow up: Response: No adverse reaction; No change in condition 1 02/04 23:23 Drug: Lopressor (metoprolol TARTRATE) 50 mg Route: PO; tl2 02/05 00:22 Follow up: Response: No adverse reaction; Marked relief of symptoms; Blood pressure is tl1 lowered 02/04 23:23 Drug: Lovenox 1 mg/kg Route: Sub-Q; Site: left lower abdomen; tl2 02/05 00:22 Follow up: Response: No adverse reaction; No change in condition 1 02/04 23:24 Drug: morphine 4 mg Route: IVP; Site: right hand; tl2 02/05 00:21 Follow up: Response: No adverse reaction; Marked relief of symptoms; Pain is decreased tl1 02/04 23:24 Drug: Zofran 4 mg Route: IVP; Site: right hand; tl2 02/05 00:21 Follow up: Response: No adverse reaction; Marked relief of symptoms; Nausea is decreasedtl1 Disposition: 02/04/19 22:49 Hospitalization ordered by Pravin Valdez for Observation. Preliminary diagnosis are Other chest pain, Dyspnea, Type 2 diabetes mellitus, Essential (primary) hypertension. - Bed requested for Telemetry/MedSurg (observation). - Status is Observation. tl2 - Condition is Stable. - Problem is new. - Symptoms have improved. UTI on Admission? No Signatures: Dispatcher [employer] [facility] Radha Beasley RN RN aa1 Art Benavides MD MD cha Garcia, Cindy, RN RN cg Aggie Amos RN RN tl2 Leah Del Toro RN tl1 Corrections: (The following items were deleted from the chart) 02/04 22:17 21:53 D-Dimer ordered. [facility] 02/05 00:03 02/04 22:49 Hospitalization Ordered by Pravin Valdez MD for Observation. Preliminary cg diagnosis is Other chest pain; Dyspnea; Type 2 diabetes mellitus; Essential (primary) hypertension. Bed requested for Telemetry/MedSurg (observation). Status is Observation. Condition is Stable. Problem is new. Symptoms have improved. UTI on Admission? No. [facility] 02/05 01:08 00:03 02/04/2019 22:49 Hospitalization Ordered by Pravin Valdez MD for Observation. tl2 Preliminary diagnosis is Other chest pain; Dyspnea; Type 2 diabetes mellitus; Essential (primary) hypertension. Bed requested for Telemetry/MedSurg (observation). Status is Observation. Condition is Stable. Problem is new. Symptoms have improved. UTI on Admission? No. cg
--- NOTE | 2019-02-04 22:50 | ER ---
Nurse's Notes [facility] Name: Dexter Griffith Age: 63 yrs Sex: Male : 1955 Arrival Date: 02/04/2019 Time: 21:09 Bed 6 Private MD: Diagnosis: Other chest pain;Dyspnea;Type 2 diabetes mellitus;Essential (primary) hypertension Presentation: 02/04 21:14 Presenting complaint: Patient states: CP \T\ SOB x 3 days. Transition of care: patient aa1 was not received from another setting of care. Onset of symptoms was February 02, 2019. Risk Assessment: Do you want to hurt yourself or someone else? Patient reports no desire to harm self or others. Initial Sepsis Screen: Does the patient meet any 2 criteria? No. Patient's initial sepsis screen is negative. Does the patient have a suspected source of infection? No. Patient's initial sepsis screen is negative. Care prior to arrival: None. 21:14 Method Of Arrival: Ambulatory aa1 21:14 Acuity: AMANDA 3 aa1 Triage Assessment: 21:15 General: Appears in no apparent distress. comfortable, Behavior is calm, cooperative, aa1 appropriate for age. Historical: - Allergies: 21:15 No Known Allergies; aa1 - Home Meds: 21:15 atorvastatin Oral [Active]; Levemir 100 unit/mL subcutaneous soln [Active]; Metformin aa1 Oral [Active]; metoprolol [Active]; - PMHx: 21:15 Deaf Left Ear; Diabetes - NIDDM; High Cholesterol; aa1 - PSHx: 21:15 Heart stents; aa1 - Immunization history:: Adult Immunizations unknown. - Social history:: Smoking status: Patient uses tobacco products, denies chronic smoking, but will smoke occasionally. - Ebola Screening: : No symptoms or risks identified at this time. - Family history:: not pertinent. Screenin:55 Abuse screen: Denies threats or abuse. Nutritional screening: No deficits noted. tl2 Tuberculosis screening: No symptoms or risk factors identified. Fall Risk None identified. Assessment: 21:20 General: Appears in no apparent distress. uncomfortable, Behavior is calm, cooperative, tl2 appropriate for age. Pain: Denies pain. Neuro: Level of Consciousness is awake, alert, obeys commands, Oriented to person, place, time, situation. Cardiovascular: Denies chest pain. Respiratory: Reports shortness of breath Airway is patent Respiratory effort is even, unlabored, Respiratory pattern is regular, symmetrical. GI: No signs and/or symptoms were reported involving the gastrointestinal system. : No signs and/or symptoms were reported regarding the genitourinary system. Derm: Skin is pink, warm \T\ dry. 22:30 Reassessment: Patient appears in no apparent distress at this time. Patient and/or tl2 family updated on plan of care and expected duration. Pain level reassessed. Patient is alert, oriented x 3, equal unlabored respirations, skin warm/dry/pink. 02/05 00:00 Reassessment: Patient appears in no apparent distress at this time. Patient and/or tl2 family updated on plan of care and expected duration. Pain level reassessed. Patient is alert, oriented x 3, equal unlabored respirations, skin warm/dry/pink. Patient denies pain at this time. 01:07 Reassessment: Patient appears in no apparent distress at this time. Patient and/or tl2 family updated on plan of care and expected duration. Pain level reassessed. Patient is alert, oriented x 3, equal unlabored respirations, skin warm/dry/pink. stable for transport to floor. Vital Signs: 02/04 21:15 BP 177 / 80; Pulse 103; Resp 18; Temp 97.4; Pulse Ox 99% on R/A; Weight 90.72 kg (R); aa1 Height 5 ft. 9 in. (175.26 cm) (R); Pain 7/10; 22:30 BP 165 / 83; Pulse 83; Resp 17; Pulse Ox 96% on R/A; Pain 5/10; tl1 23:30 BP 124 / 70; Pulse 70; Resp 17; Pulse Ox 98% on R/A; Pain 0/10; tl1 02/05 00:20 BP 128 / 68; Pulse 68; Resp 16; Pulse Ox 99% on R/A; Pain 0/10; tl1 02/04 21:15 Body Mass Index 29.53 (90.72 kg, 175.26 cm) aa1 ED Course: 02/04 21:09 Patient arrived in ED. am2 21:15 Triage completed. aa1 21:15 Arm band placed on left wrist. Patient placed in an exam room, on a stretcher. aa1 21:52 Art Benavides MD is Attending Physician. jean carlos 21:54 Inserted saline lock: 22 gauge in right hand, using aseptic technique. Blood collected. tl2 21:55 Patient has correct armband on for positive identification. Bed in low position. Call tl2 light in reach. Side rails up X 1. Adult w/ patient. 21:55 Initial lab(s) drawn, by me, sent to lab. tl2 21:58 XRAY Chest (1 view) In Process Unspecified. EDMS 22:48 Pravin Valdez MD is Hospitalizing Provider. [facility] 23:02 Aggie Amos RN is Primary Nurse. tl2 02/05 00:29 No provider procedures requiring assistance completed. Patient admitted, IV remains in bb place. Administered Medications: 02/04 23:23 Drug: Aspirin 162 mg Route: PO; tl2 02/05 00:22 Follow up: Response: No adverse reaction; No change in condition tl1 02/04 23:23 Drug: Lopressor (metoprolol TARTRATE) 50 mg Route: PO; tl2 02/05 00:22 Follow up: Response: No adverse reaction; Marked relief of symptoms; Blood pressure is tl1 lowered 02/04 23:23 Drug: Lovenox 1 mg/kg Route: Sub-Q; Site: left lower abdomen; tl2 02/05 00:22 Follow up: Response: No adverse reaction; No change in condition tl1 02/04 23:24 Drug: morphine 4 mg Route: IVP; Site: right hand; tl2 02/05 00:21 Follow up: Response: No adverse reaction; Marked relief of symptoms; Pain is decreased tl1 02/04 23:24 Drug: Zofran 4 mg Route: IVP; Site: right hand; tl2 02/05 00:21 Follow up: Response: No adverse reaction; Marked relief of symptoms; Nausea is decreasedtl1 Outcome: 02/04 22:49 Decision to Hospitalize by Provider. [facility] 02/05 00:29 Instructed on the need for admit. bb 01:08 Admitted to Tele accompanied by tech, via wheelchair, room 424, with chart, Report tl2 called to ZOË Matthews 01:08 Condition: stable 01:08 Patient left the ED. tl2 Signatures: Dispatcher [employer] EDRadha Crawford, RN RN aa1 Art Benavides MD MD cha Ballard, Brenda, RN RN bb Leah Del Toro RN RN tl1 Aggie Amos RN RN tl2 Gina Mark am2
[2019-02-04] MEDS ORDERED: MORPHINE 4 MG/ML SYR ONE (23:11)
[2019-02-04] MEDS ORDERED: METOPROLOL TAR 50 MG TAB ONE (23:11)
[2019-02-04] MEDS ORDERED: ONDANSETRON 4 MG/2 ML VIAL ONE (23:11)
[2019-02-04] MEDS ORDERED: ASPIRIN 81 MG CHEWABLE TABLET ONE (23:11)
[2019-02-04] MEDS ORDERED: ENOXAPARIN 100 MG/ML SYR SQ ONE (23:12)
[2019-02-04] MEDS ORDERED: ALPRAZOLAM 0.25 MG TABLET PO PRN (23:50)
[2019-02-04] MEDS ORDERED: MORPHINE 4 MG/ML SYR IV PRN (23:50)
[2019-02-04] MEDS ORDERED: ACETAMINOPHEN 500 MG TAB PO PRN (23:50)
[2019-02-05 06:12] LABS: Basophils % 0.7 % (0-1.3); Eosinophils % 1.8 % (0-4.4); Hematocrit 44.6 % (39.6-49.0); Lymphocytes % 44.6 % (15.3-44.8); MPV 7.2 fL (7.6-11.3); Monocytes % 6.8 % (3.3-12.3); RBC Red Blood Cell Count 5.04 M/uL (4.33-5.43)
[2019-02-05 06:25] LABS: BUN Blood Urea Nitrogen 13 mg/dL (7-18); Bicarbonate 27 mmol/L (21-32); Glucose Level 252 mg/dL (74-106); HDL Cholesterol 33 mg/dL (40-60); LDL Cholesterol, Calculated ND (<130); Potassium 3.8 mmol/L (3.5-5.1); Sodium Level 137 mmol/L (136-145)
[2019-02-05 06:40] LABS: LDL, Direct 100 mg/dL (100-129)
--- NOTE | 2019-02-05 06:53 | EKG ---
Test Date: 2019-02-04 Test Time: 21:24:49 Talent Acquisition Operations Manager: VICK MEASUREMENT RESULTS: Intervals: Rate: 100 OR: 152 QRSD: 88 QT: 340 QTc: 438 [place]: P: 15 OR: 152 QRS: 4 T: -13 INTERPRETIVE STATEMENTS: Normal sinus rhythm Inferior infarct, age undetermined Abnormal ECG Compared to ECG 09/13/2017 23:02:28 Sinus tachycardia no longer present Myocardial infarct finding still present Electronically Signed On 02-05-19 06:53:02 CDT by Lei Quintanilla
--- NOTE | 2019-02-05 08:34 | P.HP ---
Certification for Inpatient Patient admitted to: Observation With expected LOS: <2 Midnights Patient will require the following post-hospital care: None Practitioner: I am a practitioner with admitting privileges, knowledge of patient current condition, hospital course, and medical plan of care. Services: Services provided to patient in accordance with Admission requirements found in Title 42 Section 412.3 of the Code of Federal Regulations Patient History Date of Service: 02/04/19 Reason for admission: Chest pain rule out ACS History of Present Illness: Patient is a 63yo who was admitted to the hospital with chest pain. Patient was doing some work in his yard, and he started having pain. He tried to relax the pain was not going away. He came into the hospital for further evaluation. In the emergency room, his troponins and EKGs have not revealed any acute pathology. Patient has a history of coronary artery disease status post five- vessel coronary artery bypass grafting. He states he has follows up with a optical engineering manager in [place]. He has not had any abnormal workups. He decided come into the hospital for further workup. At this time, he will be admitted to the hospital for further workup. Allergies No Known Drug Allergies Allergy (Verified 02/05/19 08:21) Unknown No Known Allergies Allergy (Uncoded 02/05/19 08:21) Unknown - Past Medical/Surgical History Has patient received pneumonia vaccine in the past: No Diabetic: Yes -: diabetes -: hypertension -: CAD -: CABG -: Cholecystectomy - Family History Father Family History: Reviewed- Non-Contributory - Social History Smoking Status: Current every day smoker Alcohol use: No CD- Drugs: No Caffeine use: Yes Place of Residence: Home Review of Systems 10-point ROS is otherwise unremarkable Physical Examination - Vital Signs Temperature: 97.4 F Blood Pressure: 110/66 Pulse: 69 Respirations: 18 Pulse Ox (%): 97 - Physical Exam General: Alert, In no apparent distress, Oriented x3 HEENT: Atraumatic, PERRLA, Mucous membr. moist/pink, EOMI, Sclerae nonicteric Neck: Supple, 2+ carotid pulse no bruit, No LAD, Without JVD or thyroid abnormality Respiratory: Clear to auscultation bilaterally, Normal air movement Cardiovascular: Regular rate/rhythm, Normal S1 S2, No murmurs Gastrointestinal: Normal bowel sounds, Soft and benign, Non-distended, No tenderness, No rebound, No guarding Musculoskeletal: No clubbing, No swelling, No tenderness Integumentary: No rashes Neurological: Normal gait, Normal speech, Normal strength at 5/5 x4 extr, Normal tone, Sensation intact, Cranial nerves 3-12 intact, Normal affect Lymphatics: No axilla or inguinal lymphadenopathy - Studies Laboratory Data (last 24 hrs) 02/04/19 21:52: PT 10.7, INR 0.90 02/04/19 21:52: WBC 12.3 H, Hgb 15.7, Hct 46.5, Plt Count 255 02/04/19 21:52: Sodium 137, Potassium 3.6, BUN 8, Creatinine 0.96, Glucose 189 H , Magnesium 1.8, Total Bilirubin 0.4, AST 19, ALT 31, Alkaline Phosphatase 89 Assessment & Plan - Problems (Diagnosis) (1) Chest pain due to CAD Current Visit: Yes Status: Acute (2) HTN (hypertension) Current Visit: Yes Status: Acute Qualifiers: Hypertension type: essential hypertension Qualified Code(s): I10 - Essential (primary) hypertension (3) DM2 (diabetes mellitus, type 2) Current Visit: Yes Status: Acute - Plan 1. Serial troponins and EKG 2. Cardiology consultation 3. Echocardiogram and additional workup as necessary 4. Anti-platelet therapy, anti coagulation, beta-ana, statin, and O2 as needed 5. IV morphine for pain 6. Nitro p.r.n. 7. GI and DVT prophylaxis Discharge Plan: Home Plan to discharge in: Greater than 2 days - Advance Directives Does patient have a Living Will: No Does patient have a Durable POA for Healthcare: No - Code Status/Comfort Care Code Status Assessed: Yes Code Status: Full Code Critical Care: No Time Spent Managing PTS Care (In Minutes): 45
--- NOTE | 2019-02-05 08:51 | RAD REPORT ---
EXAM DESCRIPTION: RAD - Chest Single View - 02/04/2019 9:59 pm CLINICAL HISTORY: Chest pain, shortness of breath COMPARISON: September 2017 TECHNIQUE: AP portable chest image was obtained 2156 hours . FINDINGS: Lung britt are clear. No vascular engorgement. Sternotomy wires are in place. Heart size is upper normal. Left-sided heart size is accentuated due to a prominent pericardial fat pad. No jax urable pleural effusion and no pneumothorax. No acute bony abnormality seen. No acute aortic findings suspected. IMPRESSION: No acute cardiopulmonary process. No suspicious change from comparison.
[2019-02-05] MEDS ORDERED: ENOXAPARIN 40 MG/0.4 ML SQ SCH (09:00)
[2019-02-05] MEDS ORDERED: ASPIRIN EC 81 MG TAB PO SCH (09:00)
[2019-02-05] MEDS ORDERED: METOPROLOL TAR 50 MG TAB PO SCH (09:00)
--- NOTE | 2019-02-05 11:08 | EKG ---
Test Date: 2019-02-05 Test Time: 07:46:34 [place]: KRISTEN MEASUREMENT RESULTS: Intervals: Rate: 73 VA: 192 QRSD: 98 QT: 406 QTc: 447 [facility]: P: 54 VA: 192 QRS: 21 T: 1 INTERPRETIVE STATEMENTS: Normal sinus rhythm Possible Inferior infarct, age undetermined Abnormal ECG Compared to ECG 02/04/2019 21:24:49 No significant changes Electronically Signed On 02-05-19 11:06:51 CDT by Lei Quintanilla
--- NOTE | 2019-02-05 11:56 | ECHO ---
HEIGHT: ft in WEIGHT: lb oz DATE OF STUDY: 02/05/[address]: Pravin Valdez MD 2-DIMENSIONAL: YES M.MODE: YES DOPPLER: YES COLOR FLOW: YES TDS: NO PORTABLE: NO DEFINITY: NO BUBBLE STUDY: NO DIAGNOSIS: CHEST PAIN CARDIAC HISTORY: CATHERIZATION: NO SURGERY: NO PROSTHETIC VALVE: NO PACEMAKER: NO MEASUREMENTS (cm) DIASTOLIC (NORMALS) SYSTOLIC (NORMALS) IVSd 1.2 (0.6-1.2) LA Diam 4.3 (1.9-4.0) LVEF 55% LVIDd 3.9 (3.5-5.7) LVIDs 2.8 (2.0-3.5) %FS 28% LVPWd 1.1 (0.6-1.2) Ao Diam 2.4 (2.0-3.7) 2 DIMENSIONAL ASSESSMENT: RIGHT ATRIUM: NORMAL LEFT ATRIUM: DILATED RIGHT VENTRICLE: NORMAL LEFT VENTRICLE: NORMAL TRICUSPID VALVE: NORMAL MITRAL VALVE: NORMAL PULMONIC VALVE: NORMAL AORTIC VALVE: SCLEROSIS PERICARDIAL EFFUSION: NONE AORTIC ROOT: NORMAL LEFT VENTRICULAR WALL MOTION: NORMAL. DOPPLER/COLOR FLOW: NORMAL. COMMENTS: LEFT ATRIAL ENLARGEMENT. AORTIC SCLEROSIS WITH NO STENOSIS. NORMAL LEFT VENTRICULAR SIZE AND FUNCTION. NO WALL MOTION ABNORMALITY. TECHNOLOGIST: REJI RUIZ
[2019-02-05 12:02] LABS: Urine Appearance CLOUDY; Urine Bilirubin NEGATIVE (NEG); Urine Blood NEGATIVE (NEG); Urine Color YELLOW; Urine Glucose 2+ (NEG); Urine Protein NEGATIVE (NEG); Urine Specific Gravity >=1.030 (1.005-1.030); Urine Urobilinogen 0.2 mg/dL (0.2-1.0)
[2019-02-05 12:04] LABS: Urine Microscopic Reflex ORDER UMIC
[2019-02-05] MEDS ORDERED: D50W 25 GM/50 ML SYRINGE IV PRN (12:04)
[2019-02-05] MEDS ORDERED: GLUCAGON 1 MG/VIAL IM PRN (12:04)
[2019-02-05 12:53] LABS: Urine Bacteria <20 /HPF (NONE SEEN); Urine Culture Reflex Order NOT NEEDED; Urine Mucus 2+ /HPF (NONE SEEN); Urine RBC <5 /HPF (NONE SEEN)
--- NOTE | 2019-02-05 14:38 | P.SSS ---
Patient History Date of Service: 02/05/19 Reason for admission: Chest pain rule out ACS History of Present Illness: Patient is a 63yo who was admitted to the hospital with chest pain. Patient was doing some work in his yard, and he started having pain. He tried to relax the pain was not going away. He came into the hospital for further evaluation. In the emergency room, his troponins and EKGs have not revealed any acute pathology. Patient has a history of coronary artery disease status post five- vessel coronary artery bypass grafting. He states he has follows up with a betting clerk in [place]. He has not had any abnormal workups. He decided come into the hospital for further workup. At this time, he will be admitted to the hospital for further workup. Allergies No Known Drug Allergies Allergy (Verified 02/05/19 08:21) Unknown No Known Allergies Allergy (Uncoded 02/05/19 08:21) Unknown Home Medications: Atorvastatin Calcium [Lipitor] 80 mg PO BEDTIME 02/05/19 Insulin Detemir [Levemir Flextouch] 18 unit SQ BID 02/05/19 Metformin HCl 1,000 mg PO BIDWM 02/05/19 Metoprolol Succinate [Toprol Xl*] 50 mg PO DAILY 02/05/19 - Past Medical/Surgical History Has patient received pneumonia vaccine in the past: No Diabetic: Yes -: diabetes -: hypertension -: CAD -: CABG -: Cholecystectomy - Social History Smoking Status: Current every day smoker Alcohol use: No CD- Drugs: No Caffeine use: Yes Place of Residence: Home Review of Systems 10-point ROS is otherwise unremarkable Physical Examination - Vital Signs Temperature: 97.7 F Blood Pressure: 121/67 Pulse: 74 Respirations: 16 Pulse Ox (%): 97 - Physical Exam General: Alert, In no apparent distress HEENT: Atraumatic, PERRLA, Mucous membr. moist/pink, EOMI, Sclerae nonicteric Neck: Supple, 2+ carotid pulse no bruit, No LAD, Without JVD or thyroid abnormality Respiratory: Clear to auscultation bilaterally, Normal air movement Cardiovascular: Regular rate/rhythm, Normal S1 S2 Gastrointestinal: Normal bowel sounds, No tenderness Musculoskeletal: No tenderness Integumentary: No rashes Neurological: Normal gait, Normal speech, Normal strength at 5/5 x4 extr, Normal tone, Normal affect Lymphatics: No axilla or inguinal lymphadenopathy - Studies Laboratory Data (last 24 hrs) 02/04/19 21:52: PT 10.7, INR 0.90 02/04/19 21:52: WBC 12.3 H, Hgb 15.7, Hct 46.5, Plt Count 255 02/04/19 21:52: Sodium 137, Potassium 3.6, BUN 8, Creatinine 0.96, Glucose 189 H , Magnesium 1.8, Total Bilirubin 0.4, AST 19, ALT 31, Alkaline Phosphatase 89 - Diagnosis (Problem(s)) (1) Chest pain due to CAD Current Visit: Yes Status: Acute (2) DM2 (diabetes mellitus, type 2) Current Visit: Yes Status: Acute - Disposition Disposition: ROUTINE DISCHARGE Condition: GOOD Diet: Regular Activity: Ad clara
[2019-02-05] MEDS ORDERED: INSULIN -REGULAR HUMAN 50 UNIT/0.5 ML ML SQ SCH (16:30)
== END 2019-02-05 15:40 | disposition home or self-care (01) ==
LOC: ER 21:07 → ERHOLD 23:50 → 4TH 02-05 00:40
PROVIDERS: ADMIT Hospitalist; ATTEND Hospitalist
DX: R07.9 Chest pain, unspecified (principal); E11.9 Type 2 diabetes mellitus without complications; I10 Essential (primary) hypertension; I25.10 Atherosclerotic heart disease of native coronary artery without angina pectoris; F17.210 Nicotine dependence, cigarettes, uncomplicated; Z95.1 Presence of aortocoronary bypass graft
CPT/HCPCS: 36415; 71045; 80048; 80061; 80076; 81003; 81015; 82962; 83735; 83880; 84484; 85025; 85379; 85610; 93005; 93306; 96372; 96374; 96375; 99285; G0378; J1650; J2405